=== PATIENT | female | born 1930 | race Caucasian/White ===

== ENCOUNTER 2017-05-27 16:41 | Inpatient (IN) | payer MEDICAID ==
[~2017-05-27] VITALS: Ht 154.9 cm; Wt 58.5 kg
[2017-05-27] MEDS ORDERED: IOHEXOL 350 MG/ML 10 ML VIAL (for RAD DIAG) IVCONTRAST ONE (16:42)
[2017-05-27 16:45] VITALS: BP 160/79; PULSE 104; RESP 16; TEMP 97.9; O2SAT 100
[2017-05-27 18:33] VITALS: O2SAT 97
[2017-05-27 19:05] VITALS: BP 151/71; PULSE 92; RESP 18; O2SAT 98
[2017-05-27 19:05] LABS: ALBUMIN 1.9 GM/DL (3.4-5.0); AST (GOT) 121 U/L (15-37); BICARBONATE 24.8 MEQ/L (21.0-32.0); BLOOD UREA NITROGEN 12 MG/DL (7-18); CALCIUM 8.7 MG/DL (8.5-10.1); CHLORIDE 102 MEQ/L (98-107); CREATININE 0.74 MG/DL (0.50-1.00); GLOMERULAR FILTRATION RATE 74 ML/MIN (>89); GLUCOSE,RANDOM 82 MG/DL (74-106); SODIUM (NA) 134 MEQ/L (136-145)
[2017-05-27 19:06] LABS: ALT (GPT) 69 U/L (10-53)
[2017-05-27 19:19] LABS: ALKALINE PHOSPHATASE 1296 U/L (45-117); TOTAL BILIRUBIN ADULT 2.9 MG/DL (0.2-1.0); TOTAL PROTEIN 5.9 GM/DL (6.4-8.2)
[2017-05-27 19:25] LABS: AUTOMATED NEUTROPHIL # 6.3 TH/MM3 (1.8-7.7); BASOPHIL # 0.1 TH/MM3 (0-0.2); BASOPHIL % 1.3 % (0.0-2.0); EOSINOPHIL # 0.2 TH/MM3 (0-0.4); EOSINOPHIL % 2.4 % (0.0-4.0); HEMATOCRIT 24.9 % (35.0-46.0); HEMOGLOBIN 8.8 GM/DL (11.6-15.3); LYMPHOCYTE # 1.4 TH/MM3 (1.0-4.8); MEAN CELL VOLUME 91.3 FL (80.0-100.0); MEAN CORPUSCULAR HEMOGLOBIN 32.3 PG (27.0-34.0); MEAN CORPUSCULAR HGB CONC 35.4 % (32.0-36.0); MEAN PLATELET VOLUME 8.7 FL (7.0-11.0); MONO % 7.3 % (0.0-8.0); MONOCYTE # 0.6 TH/MM3 (0-0.9); PLATELET COUNT 226 TH/MM3 (150-450); RED BLOOD COUNT 2.72 MIL/MM3 (4.00-5.30); WHITE BLOOD COUNT 8.6 TH/MM3 (4.0-11.0)
--- NOTE | 2017-05-27 19:26 | PD ---
HPI Chief Complaint: Abnormal Results Time Seen by Provider: 19:18 Travel History International Travel<30 days: No Contact w/Intl Traveler<30days: No Traveled to known affect area: No History of Present Illness HPI The patient is an 86 year old female who presents to the [facility] emergency department with a history of being told by her primary care physician that she needed to go to the emergency department related to liver failure. According to the daughter that that the bedside, the patient has not been well recently with increased fatigue, vaginal bleeding for the last few months, and diarrhea for the last month. The patient lives on her own, however recently due to the fatigue she has not been able to mow her lawn like she usually does. The patient was last seen by her primary care physician approximately a year ago. Her PCP is . Her family was concerned about her increased fatigue and went to her primary care physician without the patient herself and asked that labs be done. The laboratory studies revealed elevated liver enzymes thus the referral to the emergency department. Otherwise on review of systems, the patient denies having any recent fevers, cough, congestion, neck pain, chest pain, shortness of breath, abdominal pain, vomiting, urinary symptoms, one-sided weakness, slurred speech, facial droop, difficulty with word finding ability, or vision changes. The patient denies drinking any alcohol. She denies using any [id number] pain relievers. PFSH Past Medical History Narrative Medical The patient reports having history of acid reflux. The patient reports having a history of shingles 2 years ago with intermittent dizziness since then and fatigue since then according to the family. ?: Not Menopausal: Yes Past Surgical History Narrative Surgical The patient's past surgical history is significant for a hemorrhoidectomy. Social History Alcohol Use: No Tobacco Use: No Substance Use: No Allergies-Medications (Allergen,Severity, Reaction): Coded Allergies: No Known Allergies (Unverified , 05/27/17) Reported Meds & Prescriptions Reported Meds & Active Scripts Active No Active Prescriptions or Reported Medications Review of Systems Except as stated in HPI: all other systems reviewed are Neg General / Constitutional: No: Fever Eyes: No: Visual changes HENT: No: Headaches Cardiovascular: No: Chest Pain or Discomfort Respiratory: No: Shortness of Breath Gastrointestinal: Positive: Diarrhea, Changes in Bowel Habits, Indigestion, Loss of Appetite, No: Nausea, Vomiting, Abdominal Pain, Hematemesis, Hematochezia Genitourinary: Positive: Vaginal Bleeding, No: Dysuria Musculoskeletal: No: Pain Skin: No Rash Neurologic: No: Weakness Psychiatric: No: Depression Endocrine: No: Polydipsia Hematologic/Lymphatic: No: Easy Bruising Physical Exam Narrative General: The patient is a well-developed well-nourished female in no acute distress. She is slightly pale on examination. Head and Neck exam: Head is normocephalic atraumatic. Eyes: EOMI, pupils are equal round and reactive to light. Nose: Midline septum with pink mucous membranes Mouth: Dentition unremarkable. Moist mucus membranes. Posterior oropharynx is not erythematous. No tonsillar hypertrophy. Uvula midline. Airway patent. Neck: No palpable lymphadenopathy. No nuchal rigidity. No thyromegaly. Cardiovascular: Regular rate and rhythm without murmurs, gallops, or rubs. Lungs: Clear to auscultation bilaterally. No wheezes, rhonchi, or rales. Abdomen: Soft, without tenderness to palpation in all 4 quadrants of the abdomen. No guarding, rebound, or rigidity. Normal bowel sounds are audible. No tenderness on palpation of McBurney's point. Negative Light's sign. Extremities: No clubbing, cyanosis, or edema. 2+ pulses in all 4 extremities. No calf tenderness on palpation. Back: No costovertebral angle tenderness to palpation. Neurologic Exam: Cranial nerves 2-12 were intact on exam. Strength is 5/5 in all 4 extremities. No sensory deficits noted. Skin Exam: No rash noted. Intact skin that is warm and dry. RECTAL EXAM: No masses or tenderness, no stool is noted in the rectal vault. The patient is noted to have some blood in her depends that appears to be related to vaginal bleeding. This is consistent with her reported history of spotting. Mucus on rectal examination was Hemoccult positive. Data Data Last Documented VS Vital Signs Date Time Temp Pulse Resp B/P (MAP) Pulse Ox O2 Delivery O2 Flow Rate FiO2 05/27/17 19:59 95 18 160/95 (116) 100 Room Air 05/27/17 18:34 2.00 05/27/17 16:45 97.9 Orders Orders Complete Blood Count With Diff (05/27/17 18:24) Comprehensive Metabolic Panel (05/27/17 18:24) Iv Access Insert/Monitor (05/27/17 18:24) Ecg Monitoring (05/27/17 18:24) Oximetry (05/27/17 18:24) Lipase (05/27/17 18:24) Prothrombin Time / Inr (Pt) (05/27/17 19:18) Act Partial Throm Time (Ptt) (05/27/17 19:18) Ct Abd/Pel W Iv Contrast(Rout) (05/27/17 19:18) Iohexol 350 Inj (Omnipaque 350 Inj) (05/27/17 16:42) Us Abdomen Gallbladder (05/27/17 19:53) Consult Gastroenterology (05/27/17 ) Admit Order (Ed Use Only) (05/27/17 21:34) Diet Npo (05/28/17 Breakfast) Labs Laboratory Tests Test 05/27/17 18:28 05/27/17 19:05 05/27/17 19:25 Blood Urea Nitrogen 12 MG/DL Creatinine 0.74 MG/DL Random Glucose 82 MG/DL Total Protein 5.9 GM/DL Albumin 1.9 GM/DL Calcium Level 8.7 MG/DL Alkaline Phosphatase 1296 U/L Aspartate Amino Transf (AST/SGOT) 121 U/L Alanine Aminotransferase (ALT/SGPT) 69 U/L Total Bilirubin 2.9 MG/DL Sodium Level 134 MEQ/L Potassium Level 4.3 MEQ/L Chloride Level 102 MEQ/L Carbon Dioxide Level 24.8 MEQ/L Anion Gap 7 MEQ/L Estimat Glomerular Filtration Rate 74 ML/MIN Lipase 196 U/L White Blood Count 8.6 TH/MM3 Red Blood Count 2.72 MIL/MM3 Hemoglobin 8.8 GM/DL Hematocrit 24.9 % Mean Corpuscular Volume 91.3 FL Mean Corpuscular Hemoglobin 32.3 PG Mean Corpuscular Hemoglobin Concent 35.4 % Red Cell Distribution Width 15.0 % Platelet Count 226 TH/MM3 Mean Platelet Volume 8.7 FL Neutrophils (%) (Auto) 73.0 % Lymphocytes (%) (Auto) 16.0 % Monocytes (%) (Auto) 7.3 % Eosinophils (%) (Auto) 2.4 % Basophils (%) (Auto) 1.3 % Neutrophils # (Auto) 6.3 TH/MM3 Lymphocytes # (Auto) 1.4 TH/MM3 Monocytes # (Auto) 0.6 TH/MM3 Eosinophils # (Auto) 0.2 TH/MM3 Basophils # (Auto) 0.1 TH/MM3 CBC Comment DIFF FINAL Differential Comment Prothrombin Time 10.7 SEC Prothromb Time International Ratio 1.1 RATIO Activated Partial Thromboplast Time 25.6 SEC MDM Medical Decision Making Medical Screen Exam Complete: Yes Emergency Medical Condition: Yes Medical Record Reviewed: Yes Interpretation(s) Last Impressions Gall Bladder Ultrasound 05/27/171952 Signed Impressions: Service Date/Time: Saturday, May 27, 2017 20:28 - CONCLUSION: 1. Choledocholithiasis. At least 2 subcentimeter distal duct stones causing obstruction. 2. Cholelithiasis without evidence of cholecystitis. 3. Small ascites, nonspecific. Romeo Caro MD Abdomen/Pelvis CT 05/27/171917 Signed Impressions: Service Date/Time: Saturday, May 27, 2017 19:39 - CONCLUSION: 1. Biliary obstruction at the level of the distal common bile duct and probably on the basis of stones. 2. Superimposed hepatocellular dysfunction and/or portal hypertension possible. There is ascites and splenomegaly. Portal vein is patent. 3. Large heterogeneous masslike area of the lower uterine segment/cervix. Endometrial and cervical carcinoma are both in the differential. I don't see any evidence of metastatic disease. 4. Diverticulosis without definite diverticulitis. 5. Large hiatal hernia. 6. Subcutaneous nodule mons pubis area as above and please correlate clinically. 7. Trace atelectasis and tiny effusions of the visualized lung bases. Romoe Caro MD Differential Diagnosis Symptomatic anemia, versus liver failure with fatigue, versus liver metastasis Narrative Course During the course of the patients emergency department visit, the patients history, examination, and differential diagnosis were reviewed with the patient. The patient was placed on a threat monitoring analyst with oximetry and frequent blood pressure monitoring. The patient had IV access obtained and blood work sent for analysis. The patients laboratory studies were reviewed and remarkable for a white count of 8.6, hemoglobin 8.8, platelets 226 with 73 neutrophils. Rectal examination revealed no stool in the rectal vault, however mucus was Hemoccult positive this could be a false positive related to the patient's vaginal bleeding, as there was some blood in the pull-up. CMP is remarkable for sodium 134, GFR 74, total bilirubin 2.9, AST 121, ALT 69, alkaline phosphatase 1296, lipase 196, PT 10.7, PTT 20 5. Radiology studies were reviewed and remarkable for a CT scan of the abdomen and pelvis shows biliary obstruction at the level of the distal common bile duct and probable relation to stones, superimposed hepatocellular dysfunction and/or portal hypertension, ascites and splenomegaly, large heterogeneous masslike area of the lower uterine segment and cervix. Ultrasound reveals choledocholithiasis with at least 2 subcentimeter distal duct stones causing obstruction. A call was placed out to the GI doctor on-call, . He requested that the patient be made nothing by mouth. He was see the patient in consultation tomorrow and plans to do an ERCP tomorrow. The patients results were discussed with the patient, including the plan of care. I explained that further testing and/ or monitoring is indicated based on the patients history, examination, and/ or laboratory findings. Therefore, I recommended admission for additional evaluation. The patient expressed understanding and was agreeable with this plan. The patient was admitted to the hospital in guarded condition and sent to a bed under the care of the [facility] service. HemaPrompt Point of Care Internal Pos. & Neg. Controls: Passed Fecal Specimen Occult Blood: Positive Physician Communication Physician Communication The patient's case including history, pertinent physical examination findings, and laboratory studies were discussed with Dr. Brooks. It was agreed that the patient would be admitted to the [facility] service. I also spoke to the spanish speaking nanny regarding the patient's choledocholithiasis. The patient will be seen in consultation in the morning. Diagnosis Primary Impression: Choledocholithiasis Additional Impressions: Uterine mass Vaginal bleeding Elevated LFTs Admitting Information Admitting Physician Requests: Admit Scripts No Active Prescriptions or Reported Meds Kerry Wilkins MD May 27, 2017 19:26
[2017-05-27 19:53] LABS: INTERNATIONAL NORMALIZED RATIO 1.1 RATIO; PROTHROMBIN TIME - PATIENT 10.7 SEC (9.8-11.6)
[2017-05-27 19:59] VITALS: BP 160/95; PULSE 95; RESP 18; O2SAT 100
--- NOTE | 2017-05-27 20:02 | RADRPT ---
EXAM DATE/TIME: 05/27/2017 19:39 [facility] COMPARISON: No previous studies available for comparison. INDICATIONS : Vaginal bleeding with abnormal liver enzymes. IV CONTRAST: 90 cc Omnipaque 350 (iohexol) IV ORAL CONTRAST: No oral contrast ingested. RADIATION DOSE: 5.18 CTDIvol (mGy) MEDICAL HISTORY : None SURGICAL HISTORY : None. ENCOUNTER: Initial ACUITY: 2 months PAIN SCALE: 0/10 LOCATION: abdomen TECHNIQUE: Volumetric scanning of the abdomen and pelvis was performed. Using automated exposure control and ad justment of the mA and/or kV according to patient size, radiation dose was kept as low as reasonably achievable to obtain optimal diagnostic quality images. DICOM format image data is available electro nically for review and comparison. FINDINGS: There is intrahepatic and extrahepatic biliary distention. Common bile duct measures 15 mm. There are several foci of increased attenuation within the distal duct, presumably stones. The gallbladder is mildly distended. No perceptible wall thickening. There is mild splenomegaly. There is also small asc ites; nothing organized or drainable. Portal vein is patent. Pancreatic duct is distended but the par enchyma is within normal limits. Heterogeneous masslike area measuring approximately 4.7 x 5.1 cm seen of the lower uterine segment an d/or cervix. Adnexal regions are within normal limits. There is diverticulosis of the left side of the colon without definite diverticulitis. Subcutaneous nodule seen just beneath the skin in the mons pubis area, most likely a sebaceous cyst b ut please correlate clinically. There is a large hiatal hernia. Mild atelectasis of the lung bases and tiny effusions. No acute bony abnormality demonstrated. CONCLUSION: 1. Biliary obstruction at the level of the distal common bile duct and probably on the basis of stone s. 2. Superimposed hepatocellular dysfunction and/or portal hypertension possible. There is ascites and splenomegaly. Portal vein is patent. 3. Large heterogeneous masslike area of the lower uterine segment/cervix. Endometrial and cervical ca rcinoma are both in the differential. I don't see any evidence of metastatic disease. 4. Diverticulosis without definite diverticulitis. 5. Large hiatal hernia. 6. Subcutaneous nodule mons pubis area as above and please correlate clinically. 7. Trace atelectasis and tiny effusions of the visualized lung bases. Romeo Caro MD on May 27, 2017 at 19:53 Board Certified Radiologist. This report was verified electronically.
--- NOTE | 2017-05-27 21:09 | RADRPT ---
EXAM DATE/TIME: 05/27/2017 20:28 [facility] COMPARISON: CT ABDOMEN & PELVIS W CONTRAST, May 27, 2017, 19:39. INDICATIONS : Right upper quadrant pain. MEDICAL HISTORY : None. SURGICAL HISTORY : None. ENCOUNTER: Initial ACUITY: 1 day PAIN SCORE: 2/10 LOCATION: Right upper quadrant MEASUREMENTS: LIVER: 12.8 cm length COMMON DUCT: 17 mm RIGHT KIDNEY: 9.0 x 3.0 x 4.0 cm FINDINGS: LIVER: Normal echotexture without focal lesion or ductal dilatation. There is normal flow velocity and dire ction in the main portal vein. COMMON DUCT: No intraluminal mass or stone visualized. Stones are seen in the distal duct measuring 5 x 5 x 3 mm a nd 6 x 4 x 3 mm. GALLBLADDER: Several subcentimeter stones and small moderate sludge seen in the gallbladder lumen. No wall thicken ing or pericholecystic fluid. Negative sonographic Light's sign. PANCREAS: The visualized portions are within normal limits. RIGHT KIDNEY: No evidence of hydronephrosis, stone, or mass. Small ascites noted. CONCLUSION: 1. Choledocholithiasis. At least 2 subcentimeter distal duct stones causing obstruction. 2. Cholelithiasis without evidence of cholecystitis. 3. Small ascites, nonspecific. Romeo Caro MD on May 27, 2017 at 21:04 Board Certified Radiologist. This report was verified electronically.
--- NOTE | 2017-05-27 21:44 | HHI.HP ---
HPI [facility] Primary [facility] Physician Compa Mandujano, DO Admission Diagnosis Choledocholitiasis, uterine mass with vaginal bleeding Diagnoses: (1) Choledocholithiasis Diagnosis: Principal (2) Elevated LFTs Diagnosis: Principal (3) Vaginal bleeding Diagnosis: Principal (4) Uterine mass Diagnosis: Principal Travel History International Travel<30 Days: No Contact w/Intl Traveler <30 Da: No Traveled to Known Affected Are: No History of Present Illness This is an 86-year-old female with a PMH of GERD who was referred to the ER by PCP secondary to elevated liver functions. Per family, patient has had generalized weakness, intermittent abdominal cramping, vaginal bleeding and occasional diarrhea for the last 3-4wks. Had outpatient lab work done and sent to ER for elevated LFTs, previously normal per report. Notes generalized abdominal pain, cramping in nature, moderate intensity, non-radiating. No nausea or vomiting, no fever or chills. Does note vaginal bleeding for several weeks, no prior intervention/work up. On arrival, BP 160/79, HR 104, O2 sat 100 % on RA, Afebrile. Hemoglobin 8.8. Chemistry essentially unremarkable. AST 121, ALT 69, ALP 1296. INR 1.1. CT Abdomen/Pelvis with biliary obstruction at level of distal common bile duct probably due to stone ROM of portal hypertension and ascites, large masslike area in the uterine/cervical region, hiatal hernia. Gallbladder US with choledocholithiasis, stones causing obstruction. Dr. Chou consulted by ER physician, plan is for ERCP in am. Review of Systems Except as stated in HPI: all other systems reviewed are Neg ROS: 14 point review of systems otherwise negative. Past Family Social History Past Medical History PMH: GERD Past Surgical History PAST SURGICAL HISTORY: Hemorrhoidectomy Allergies: Coded Allergies: No Known Allergies (Unverified , 05/27/17) Family History PAST FAMILY HISTORY: Reviewed. No h/o DM or CAD Social History PAST SOCIAL HISTORY: Negative for alcohol, tobacco or drugs. Physical Exam Vital Signs Vital Signs Date Time Temp Pulse Resp B/P (MAP) Pulse Ox O2 Delivery O2 Flow Rate FiO2 05/27/17 19:59 95 18 160/95 (116) 100 Room Air 05/27/17 19:05 92 18 151/71 (97) 98 Room Air 05/27/17 18:34 18 97 Nasal Cannula 2.00 05/27/17 18:33 97 Nasal Cannula 2.00 05/27/17 16:45 97.9 104 16 160/79 (106) 100 Physical Exam PE: GENERAL: Pleasant elderly white female in no acute distress. Family at bedside. HEENT: PERRLA, EOMI. No scleral icterus or conjunctival pallor. No lid lag or facial droop. CARDIOVASCULAR: Regular rate and rhythm. No obvious murmurs to auscultation. No chest tenderness to palpation. RESPIRATORY: No obvious rhonchi or wheezing. Clear to auscultation. Breath sounds equal bilaterally. GASTROINTESTINAL: Abdomen soft, non-tender, nondistended. BS normal. MUSCULOSKELETAL: Extremities without clubbing, cyanosis, or edema. No obvious deformities. NEUROLOGICAL: Awake, alert and oriented x4. No focal neurologic deficits. Moving both upper and lower extremities spontaneously. Laboratory Laboratory Tests Test 05/27/17 18:28 05/27/17 19:05 05/27/17 19:25 Blood Urea Nitrogen 12 Creatinine 0.74 Random Glucose 82 Total Protein 5.9 Albumin 1.9 Calcium Level 8.7 Alkaline Phosphatase 1296 Aspartate Amino Transf (AST/SGOT) 121 Alanine Aminotransferase (ALT/SGPT) 69 Total Bilirubin 2.9 Sodium Level 134 Potassium Level 4.3 Chloride Level 102 Carbon Dioxide Level 24.8 Anion Gap 7 Estimat Glomerular Filtration Rate 74 Lipase 196 White Blood Count 8.6 Red Blood Count 2.72 Hemoglobin 8.8 Hematocrit 24.9 Mean Corpuscular Volume 91.3 Mean Corpuscular Hemoglobin 32.3 Mean Corpuscular Hemoglobin Concent 35.4 Red Cell Distribution Width 15.0 Platelet Count 226 Mean Platelet Volume 8.7 Neutrophils (%) (Auto) 73.0 Lymphocytes (%) (Auto) 16.0 Monocytes (%) (Auto) 7.3 Eosinophils (%) (Auto) 2.4 Basophils (%) (Auto) 1.3 Neutrophils # (Auto) 6.3 Lymphocytes # (Auto) 1.4 Monocytes # (Auto) 0.6 Eosinophils # (Auto) 0.2 Basophils # (Auto) 0.1 CBC Comment DIFF FINAL Differential Comment Prothrombin Time 10.7 Prothromb Time International Ratio 1.1 Activated Partial Thromboplast Time 25.6 Result Diagram: 05/27/17190405/27/171827 Caprini VTE Risk Assessment Caprin VTE Risk Assessment: No/Low Risk (score <= 1) Caprini Risk Assessment Model Point Value = 1 Point Value = 2 Point Value = 3 Point Value = 5 Age 41-60 Minor surgery BMI > 25 kg/m2 Swollen legs Varicose veins or History of unexplained or recurrent spontaneous Oral contraceptives or hormone replacement Sepsis (< 1 month) Serious lung disease, including pneumonia (< 1 month) Abnormal pulmonary function Acute myocardial infarction Congestive heart failure (< 1 month) History of inflammatory bowel disease Medical patient at bed rest Age 61-74 Arthroscopic surgery Major open surgery (> 45 min) Laparoscopic surgery (> 45 min) Malignancy Confined to bed (> 72 hours) Immobilizing plaster cast Central venous access Age >= 75 History of VTE Family history of VTE Factor V Leiden Prothrombin [id number] Lupus anticoagulant Anticardiolipin antibodies Elevated serum homocysteine Heparin-induced thrombocytopenia Other congenital or acquired thrombophilia Stroke (< 1 month) Elective arthroplasty Hip, pelvis, or leg fracture Acute spinal cord injury (< 1 month) Prophylaxis Regimen Total Risk Factor Score Risk Level Prophylaxis Regimen 0-1 Low Early ambulation 2 Moderate Order ONE of the following: *Sequential Compression Device (SCD) *Heparin 5000 units SQ BID 3-4 Higher Order ONE of the following medications: *Heparin 5000 units SQ TID *Enoxaparin/Lovenox 40 mg SQ daily (WT < 150 kg, CrCl > 30 mL/min) *Enoxaparin/Lovenox 30 mg SQ daily (WT < 150 kg, CrCl > 10-29 mL/min) *Enoxaparin/Lovenox 30 mg SQ BID (WT < 150 kg, CrCl > 30 mL/min) AND/OR *Sequential Compression Device (SCD) 5 or more Highest Order ONE of the following medications: *Heparin 5000 units SQ TID (Preferred with Epidurals) *Enoxaparin/Lovenox 40 mg SQ daily (WT < 150 kg, CrCl > 30 mL/min) *Enoxaparin/Lovenox 30 mg SQ daily (WT < 150 kg, CrCl > 10-29 mL/min) *Enoxaparin/Lovenox 30 mg SQ BID (WT < 150 kg, CrCl > 30 mL/min) AND *Sequential Compression Device (SCD) Assessment and Plan Problem List: (1) Choledocholithiasis ICD Code: K80.50 - Calculus of bile duct without cholangitis or cholecystitis without obstruction (2) Elevated LFTs ICD Code: R79.89 - Other specified abnormal findings of blood chemistry (3) Vaginal bleeding ICD Code: N93.9 - Abnormal uterine and vaginal bleeding, unspecified (4) Uterine mass ICD Code: N85.9 - Noninflammatory disorder of uterus, unspecified Assessment and Plan A/P: 1. Choledocholithiasis: progressive abdominal pain, CT Abd/Pelvis w/ biliary obstruction at the level of distal common bile duct likely due to stones, Gallbladder US with choledocholithiasis and obstruction, images reviewed by me. Dr. Chou consulted, plan is for ERCP in am. NPO, IVF, analgesics/ antiemetics as needed. 2. Elevated LFTs: secondary to above, CT Abd/Pelvis w evidence of portal hypertension and ascites, images reviewed by me. Repeat labs following ERCP for trend. 3. Uterine Mass: CT Abd/Pelvis w/ large masslike area of uterine/cervix, concern for underlying malignancy. Will Consult [facility] for further evaluation , likely intervention. 4. Vaginal Bleeding: secondary to above, r/o malignancy, [facility] to eval for further recommendations. +associated Anemia, Hgb 8.8, baseline unknown. Monitor closely for further decline, transfuse as needed for Hgb <7 5. DVT Prophylaxis: SCD/teds. 6. Social work for DC planning as needed. 7. Case discussed at length with ER physician, labs/imaging/records reviewed by me. Physician Certification 2 Midnight Certification Type: Admission for Inpatient Services Order for Inpatient Services The services are ordered in accordance with Medicare regulations or non- Medicare payer requirements, as applicable. In the case of services not specified as inpatient-only, they are appropriately provided as inpatient services in accordance with the 2-midnight benchmark. Estimated LOS (days): 2 days is the estimated time the patient will need to remain in the hospital, assuming treatment plan goals are met and no additional complications. Post-Hospital Plan: Not yet determined Judit Brooks MD May 27, 2017 21:44
[2017-05-27] MEDS ORDERED: ONDANSETRON HCL 4 MG/2 ML VIAL IVP PRN (21:45)
[2017-05-27] MEDS ORDERED: SENNOSIDES 8.6 MG TAB PO PRN (21:45)
[2017-05-27] MEDS ORDERED: ACETAMINOPHEN 325 MG TAB PO PRN (21:45)
[2017-05-27] MEDS ORDERED: SODIUM CHLORIDE 0.9% FLUSH 10 ML FLUSH IV FLUSH PRN (21:45)
[2017-05-27] MEDS ORDERED: MORPHINE SULFATE 2 MG/ML INJ IV PUSH PRN (21:45)
[2017-05-27] MEDS ORDERED: MAGNESIUM HYDROXIDE SUSP 30 ML CUP PO PRN (21:45)
[2017-05-27] MEDS ORDERED: LACTULOSE SYRUP 20 GM/30 ML CUP PO PRN (21:45)
[2017-05-27] MEDS ORDERED: BISACODYL 10 MG SUPP RECTAL PRN (21:45)
[2017-05-27] MEDS: SODIUM CHLOR 0.9% 1000 ML INJ 1,000 ML IV SCH (22:00)
[2017-05-27 22:30] VITALS: BP 171/80; PULSE 96; RESP 18; TEMP 96.6; O2SAT 98
[2017-05-28] MEDS ORDERED: cloNIDine HCL 0.1 MG TAB PO ONE (01:30)
[2017-05-28 03:45] VITALS: BP 100/58; PULSE 82; RESP 17; TEMP 97.5; O2SAT 96
[2017-05-28 06:26] LABS: AUTOMATED NEUTROPHIL # 4.3 TH/MM3 (1.8-7.7); BASOPHIL # 0.1 TH/MM3 (0-0.2); BASOPHIL % 1.1 % (0.0-2.0); EOSINOPHIL # 0.2 TH/MM3 (0-0.4); EOSINOPHIL % 2.9 % (0.0-4.0); HEMATOCRIT 24.1 % (35.0-46.0); HEMOGLOBIN 8.2 GM/DL (11.6-15.3); LYMPH % 18.6 % (9.0-44.0); LYMPHOCYTE # 1.1 TH/MM3 (1.0-4.8); MEAN CELL VOLUME 91.9 FL (80.0-100.0); MEAN CORPUSCULAR HEMOGLOBIN 31.3 PG (27.0-34.0); MEAN CORPUSCULAR HGB CONC 34.1 % (32.0-36.0); MEAN PLATELET VOLUME 8.4 FL (7.0-11.0); MONO % 7.4 % (0.0-8.0); MONOCYTE # 0.5 TH/MM3 (0-0.9); PLATELET COUNT 204 TH/MM3 (150-450); RED BLOOD COUNT 2.63 MIL/MM3 (4.00-5.30); RED CELL DISTRIBUTION WIDTH 14.8 % (11.6-17.2); WHITE BLOOD COUNT 6.2 TH/MM3 (4.0-11.0)
[2017-05-28 07:03] LABS: ALBUMIN 1.5 GM/DL (3.4-5.0); ALT (GPT) 58 U/L (10-53); AST (GOT) 101 U/L (15-37); BLOOD UREA NITROGEN 10 MG/DL (7-18); CALCIUM 8.3 MG/DL (8.5-10.1); CHLORIDE 106 MEQ/L (98-107); CREATININE 0.64 MG/DL (0.50-1.00); GLOMERULAR FILTRATION RATE 88 ML/MIN (>89); GLUCOSE,RANDOM 77 MG/DL (74-106); SODIUM (NA) 139 MEQ/L (136-145)
[2017-05-28 07:17] LABS: ALKALINE PHOSPHATASE 1051 U/L (45-117); TOTAL BILIRUBIN ADULT 3.1 MG/DL (0.2-1.0)
[2017-05-28 07:39] VITALS: BP 117/59; PULSE 84; RESP 18; TEMP 97.6; O2SAT 98
[2017-05-28] MEDS: SODIUM CHLORIDE 0.9% FLUSH 10 ML FLUSH IV FLUSH SCH ×2 (08:45→21:52)
[2017-05-28] MEDS: SODIUM CHLOR 0.9% 1000 ML INJ 1,000 ML IV SCH ×2 (08:45→17:42)
[2017-05-28] MEDS: DOCUSATE SODIUM 50 MG/SENNA 8.6 MG TAB PO SCH ×2 (08:45→21:00)
[2017-05-28] MEDS ORDERED: PNEUMOCOCCAL POLYVALENT INJ 25 MCG/0.5 ML SYR IM ONE (10:00)
[2017-05-28] MEDS ORDERED: INFLUENZA VIRUS VACCINE (QUADRIVALENT) 0.5 ML SYR IM ONE (10:00)
--- NOTE | 2017-05-28 11:19 | PD.CONS ---
HPI History of Present Illness This is a 86 year old female with no significant prior medical hx who was referred to ER by her PCP after labwork revealed elevated LFTs. She admits loose stool for the last 3 weeks. She has also been having vaginal bleeding for the last 3 weeks. She denies abd pain, jaundice, fevers, n/v. No prior hx of problems with liver, gallbladder or pancreas. Never had EGD or colonoscopy. Denies ETOH consumption. CT showed bile duct obstruction distal CBD, ascites , splenomegaly, hepatocellular dysfunction vs portal HTN, uterin mass. Gallbladder US showed choledocholithiasis. (Kristy Crespo) PFSH Past Medical History shingles Past Surgical History Hemorrhoidectomy (Kristy Crespo) Coded Allergies: No Known Allergies (Unverified , 05/27/17) Family History BrCa - mother age 30 Social History denies significant ETOH former smoker, quit 40years ago no illicit drug use (Kristy Crespo) Review of Systems Constitutional: DENIES: Fever Eyes: DENIES: Blurred vision Ears, nose, mouth, throat: DENIES: Hearing loss Respiratory: DENIES: Cough Cardiovascular: DENIES: Chest pain Gastrointestinal: COMPLAINS OF: Diarrhea, DENIES: Abdominal pain, Black stools , Bloody stools, Nausea, Vomiting, Hematemesis Genitourinary: DENIES: Hematuria Musculoskeletal: DENIES: Joint Swelling Integumentary: DENIES: Jaundice Hematologic/lymphatic: DENIES: Bruising Neurologic: DENIES: Abnormal gait Psychiatric: DENIES: Confusion (Kristy Crespo) GI Exam Vitals I&O Vital Signs Date Time Temp Pulse Resp B/P (MAP) Pulse Ox O2 Delivery O2 Flow Rate FiO2 05/28/17 07:39 97.6 84 18 117/59 (78) 98 05/28/17 03:45 97.5 82 17 100/58 (72) 96 05/27/17 22:30 96.6 96 18 171/80 (110) 98 05/27/17 19:59 95 18 160/95 (116) 100 Room Air 05/27/17 19:05 92 18 151/71 (97) 98 Room Air 05/27/17 18:34 18 97 Nasal Cannula 2.00 05/27/17 18:33 97 Nasal Cannula 2.00 05/27/17 16:45 97.9 104 16 160/79 (106) 100 I/O 05/27/17 05/27/17 05/27/17 05/28/17 05/28/17 05/28/17 07:00 15:00 23:00 07:00 15:00 23:00 Intake Total 0 ml Balance 0 ml Intake Oral 0 ml # Voids 1 # Bowel Movements 0 Imaging Last Impressions Gall Bladder Ultrasound 05/27/171952 Signed Impressions: Service Date/Time: Saturday, May 27, 2017 20:28 - CONCLUSION: 1. Choledocholithiasis. At least 2 subcentimeter distal duct stones causing obstruction. 2. Cholelithiasis without evidence of cholecystitis. 3. Small ascites, nonspecific. Romeo Caro MD Abdomen/Pelvis CT 05/27/171917 Signed Impressions: Service Date/Time: Saturday, May 27, 2017 19:39 - CONCLUSION: 1. Biliary obstruction at the level of the distal common bile duct and probably on the basis of stones. 2. Superimposed hepatocellular dysfunction and/or portal hypertension possible. There is ascites and splenomegaly. Portal vein is patent. 3. Large heterogeneous masslike area of the lower uterine segment/cervix. Endometrial and cervical carcinoma are both in the differential. I don't see any evidence of metastatic disease. 4. Diverticulosis without definite diverticulitis. 5. Large hiatal hernia. 6. Subcutaneous nodule mons pubis area as above and please correlate clinically. 7. Trace atelectasis and tiny effusions of the visualized lung bases. Romeo Caro MD Laboratory Test 05/27/17 18:28 05/27/17 19:05 05/27/17 19:25 05/28/17 05:27 Blood Urea Nitrogen 12 MG/DL 10 MG/DL Creatinine 0.74 MG/DL 0.64 MG/DL Random Glucose 82 MG/DL 77 MG/DL Total Protein 5.9 GM/DL 5.0 GM/DL Albumin 1.9 GM/DL 1.5 GM/DL Calcium Level 8.7 MG/DL 8.3 MG/DL Alkaline Phosphatase 1296 U/L 1051 U/L Aspartate Amino Transf (AST/SGOT) 121 U/L 101 U/L Alanine Aminotransferase (ALT/SGPT) 69 U/L 58 U/L Total Bilirubin 2.9 MG/DL 3.1 MG/DL Sodium Level 134 MEQ/L 139 MEQ/L Potassium Level 4.3 MEQ/L 3.8 MEQ/L Chloride Level 102 MEQ/L 106 MEQ/L Carbon Dioxide Level 24.8 MEQ/L 25.0 MEQ/L Anion Gap 7 MEQ/L 8 MEQ/L Estimat Glomerular Filtration Rate 74 ML/MIN 88 ML/MIN Lipase 196 U/L White Blood Count 8.6 TH/MM3 6.2 TH/MM3 Red Blood Count 2.72 MIL/MM3 2.63 MIL/MM3 Hemoglobin 8.8 GM/DL 8.2 GM/DL Hematocrit 24.9 % 24.1 % Mean Corpuscular Volume 91.3 FL 91.9 FL Mean Corpuscular Hemoglobin 32.3 PG 31.3 PG Mean Corpuscular Hemoglobin Concent 35.4 % 34.1 % Red Cell Distribution Width 15.0 % 14.8 % Platelet Count 226 TH/MM3 204 TH/MM3 Mean Platelet Volume 8.7 FL 8.4 FL Neutrophils (%) (Auto) 73.0 % 70.0 % Lymphocytes (%) (Auto) 16.0 % 18.6 % Monocytes (%) (Auto) 7.3 % 7.4 % Eosinophils (%) (Auto) 2.4 % 2.9 % Basophils (%) (Auto) 1.3 % 1.1 % Neutrophils # (Auto) 6.3 TH/MM3 4.3 TH/MM3 Lymphocytes # (Auto) 1.4 TH/MM3 1.1 TH/MM3 Monocytes # (Auto) 0.6 TH/MM3 0.5 TH/MM3 Eosinophils # (Auto) 0.2 TH/MM3 0.2 TH/MM3 Basophils # (Auto) 0.1 TH/MM3 0.1 TH/MM3 CBC Comment DIFF FINAL DIFF FINAL Differential Comment Prothrombin Time 10.7 SEC Prothromb Time International Ratio 1.1 RATIO Activated Partial Thromboplast Time 25.6 SEC Physical Examination HEENT: PERRL; normocephalic; atraumatic; subtle icterus CHEST: CTA CARDIAC: RRR ABDOMEN: Soft, mildly distended, dull, nontender; bowel sounds soft EXTREMITIES: No clubbing, cyanosis, or edema. SKIN: Normal; no rash; no jaundice. SLAG WHEELER: No focal deficits; alert and oriented times three. (Kristy Crespo) Assessment and Plan Plan ASSESSMENT - elevated LFTs, abnormal imaging - choledocholithiasis. Liver chemistries elevated in obstructive pattern. US GB showed stones in bile duct. CT as above, showed CBD obstruction, poss superimposed hepatocellular dysfunction and/or portal HTN, ascites, splenomegaly, dilated pancreatic duct. will get liver w/u she denies abd pain or prior hx liver problems, gallbladder problems, drinking - cholelithiasis - imaging as above - uterine mass - seen on CT. acls specialist consult pending PLAN - ERCP - obtain consent - keep NPO - liver w/u - consider GS consult - further recs to follow pt seen by myself and Dr Chou and this note is written on his behalf (Kristy Crespo) Physician Comments Patient was seen and examined, agree with above Notes, common bile duct stones on CT scan, elevated liver function test, plan for ERCP today, I discussed with the patient the procedure and complication she is agreeable to have it done Uterus/cervical mass further plan per primary team (Susan Chou MD) Kristy Crespo May 28, 2017 11:19 Susan Chou MD May 28, 2017 13:31
[2017-05-28 12:00] VITALS: BP 130/61; PULSE 93; RESP 18; TEMP 96.9; O2SAT 94
[2017-05-28] MEDS ORDERED: LIDOCAINE HCL 1% PF 5 ML SYRINGE OTHER ONE (12:00)
[2017-05-28] MEDS ORDERED: PROPOFOL 200 MG/20 ML AMP IV ONE (12:00)
--- NOTE | 2017-05-28 13:36 | PD.PROCEDR ---
GI Procedure PROCEDURE PERFORMED ERCP with sphincterotomy and stone extraction by balloon INDICATION FOR PROCEDURE Common bile duct stone on CT scan with elevated liver function test PROCEDURE: The procedure, risks and benefits were discussed with Ms. Ramon and informed consent was obtained. Anesthesia sedated her with Diprivan. She was placed in the left lateral decubitus position. ERCP: Patient was placed in a prone position. The Pentax videoscope was introduced through the oropharynx and advanced to the second portion of the duodenum where the ampula was identified. Cannulation was performed without any difficulty, cholangiogram, there were multiple filling defect in the common bile duct, sphincterotomy was performed, the duct was very dilated and a balloon sweep of the duct revealed for stones with sludge, the duct was irrigated with normal saline and end of case included cholangiogram was negative for any filling defect, the scope withdrawal back without any immediate complication FINDINGS: EGD limited exam normal Prominent ampulla Dilated common bile duct with multiple stones status post sphincterotomy was stone removal by balloon End of case included cholangiogram was negative for filling defects ESTIMATED BLOOD LOSS: None SPECIMENS REMOVED: None COMPLICATIONS: None PLAN: Nothing by mouth for 6 hours then clear liquid Watch for pancreatitis Liver function test in the morning Susan Chou MD May 28, 2017 13:36
--- NOTE | 2017-05-28 14:07 | RADRPT ---
EXAM DATE/TIME: 05/28/2017 13:24 [facility] COMPARISON: US ABDOMEN - GALLBLADDER, May 27, 2017, 20:28. CT ABDOMEN & PELVIS W CONTRAST, May 27, 2017, 19:39. INDICATIONS : Stones. Stone removal with sphincterotomy. FLUORO TIME: 3.24 minutes IMAGE COUNT: 3 CONTRAST: Instilled by Ordering Physician MEDICAL HISTORY : None. SURGICAL HISTORY : None. ENCOUNTER: Initial ACUITY: 1 day PAIN SCORE: Non-responsive. LOCATION: Right upper quadrant FINDINGS: An ERCP was performed by the ordering physician. The images demonstrate placement of an endoscope and cannulization of the distal common bile duct wi th opacification. There is evidence of distal obstruction with dilatation of the duct measuring up to approximately 1 cm. CONCLUSION: ERCP as above. Yair Aburto MD on May 28, 2017 at 14:01 Board Certified Radiologist. This report was verified electronically.
[2017-05-28] MEDS ORDERED: IOHEXOL 300 INJ 50 ML IV ONE (14:36)
--- NOTE | 2017-05-28 14:41 | HHI.PR ---
Subjective Remarks patient back fro ERC P- tolerated procedure well seen with family also having vaginal bleeding/spotting- for past 3 months- never mentioned to PCP with occasional lower abdominal discomfort- getting weaker Objective Vitals Vital Signs Date Time Temp Pulse Resp B/P (MAP) Pulse Ox O2 Delivery O2 Flow Rate FiO2 05/28/17 13:48 89 18 112/57 (75) 99 Room Air 05/28/17 12:00 96.9 93 18 130/61 (84) 94 05/28/17 07:39 97.6 84 18 117/59 (78) 98 05/28/17 03:45 97.5 82 17 100/58 (72) 96 05/27/17 22:30 96.6 96 18 171/80 (110) 98 05/27/17 19:59 95 18 160/95 (116) 100 Room Air 05/27/17 19:05 92 18 151/71 (97) 98 Room Air 05/27/17 18:34 18 97 Nasal Cannula 2.00 05/27/17 18:33 97 Nasal Cannula 2.00 05/27/17 16:45 97.9 104 16 160/79 (106) 100 I/O 05/27/17 05/27/17 05/27/17 05/28/17 05/28/17 05/28/17 07:00 15:00 23:00 07:00 15:00 23:00 Intake Total 0 ml 300 ml Balance 0 ml 300 ml Intake Oral 0 ml Other 300 ml # Voids 1 # Bowel Movements 0 Result Diagram: 05/28/17 0527 05/28/17 0527 Imaging Last Impressions GI Procedure 05/28/17 0000 Signed Impressions: Service Date/Time: Sunday, May 28, 2017 13:24 - CONCLUSION: ERCP as above. Yair Aburto MD Gall Bladder Ultrasound 05/27/171952 Signed Impressions: Service Date/Time: Saturday, May 27, 2017 20:28 - CONCLUSION: 1. Choledocholithiasis. At least 2 subcentimeter distal duct stones causing obstruction. 2. Cholelithiasis without evidence of cholecystitis. 3. Small ascites, nonspecific. Romeo Caro MD Abdomen/Pelvis CT 05/27/171917 Signed Impressions: Service Date/Time: Saturday, May 27, 2017 19:39 - CONCLUSION: 1. Biliary obstruction at the level of the distal common bile duct and probably on the basis of stones. 2. Superimposed hepatocellular dysfunction and/or portal hypertension possible. There is ascites and splenomegaly. Portal vein is patent. 3. Large heterogeneous masslike area of the lower uterine segment/cervix. Endometrial and cervical carcinoma are both in the differential. I don't see any evidence of metastatic disease. 4. Diverticulosis without definite diverticulitis. 5. Large hiatal hernia. 6. Subcutaneous nodule mons pubis area as above and please correlate clinically. 7. Trace atelectasis and tiny effusions of the visualized lung bases. Romeo Caro MD Objective Remarks awake and alert, oriented cx 3, pale anciteric lungs-clear regular rhythm abdomen soft, nontender extremities no edema neuro exam- non focal Procedures 05/28 ERCP with sphincterotomy and stone extraction by balloon A/P Problem List: (1) Choledocholithiasis ICD Code: K80.50 - Calculus of bile duct without cholangitis or cholecystitis without obstruction (2) Elevated LFTs ICD Code: R79.89 - Other specified abnormal findings of blood chemistry (3) Vaginal bleeding ICD Code: N93.9 - Abnormal uterine and vaginal bleeding, unspecified (4) Uterine mass ICD Code: N85.9 - Noninflammatory disorder of uterus, unspecified Assessment and Plan 86 years old female admitted for elevated LFTs and abdominal pain choledocholithiasis S/P ERCP with sphincterotomy 05/28 GI ff ff LFts start diet, watch for pancreatitis signs Uterine Mass on CT Abd/Pelvis w/ large masslike area of uterine/cervix, concern for underlying malignancy. Postmenopausal Vaginal Bleeding for months r/o malignancy, GYne/Onco was consulted by ER - I spoke with Dr. Owens- get a gyne evaluation first Anemia- from ongoing Vaginal bleeding- patient is symptomatic and very weak will give 1 unit RBC now get iron studies d/w family and patient TEDs/SCDs for DVT prophylaxis PPI for GI prophylaxis Jadiel Aguilar MD May 28, 2017 14:41
[2017-05-28] MEDS: PANTOPRAZOLE SOD 40 MG DELAYED RELEASE TAB PO SCH (15:27)
[2017-05-28 15:49] LABS: % SATURATION IRON PROFILE 28.9 % (20-50); IRON (FE) 53 MCG/DL (50-170); TOTAL IRON BINDING CAPACITY 183 MCG/DL (250-450)
[2017-05-28 15:52] LABS: FERRITIN 178 NG/ML (8-252)
[2017-05-28 16:00] VITALS: BP 132/62; PULSE 94; RESP 18; TEMP 97.1; O2SAT 97
--- NOTE | 2017-05-28 16:13 | PD.CONS ---
HPI Chief Complaint vaginal bleeding Date Seen: May 28, 2017 Time Seen: 15:30 Travel History International Travel<30 Days: No Contact w/Intl Traveler<30Days: No Known Affected Area: No History of Present Illness HPI Mrs. Ramon is an 86-year-old white female with a past medical history of hypertension presenting with vaginal bleeding. She states that this started a few months ago. She says she soaks through 4-5 pads a day. She feels like something is sloughing off in her vagina when she bleeds and also when she looks at the contents in her pad. No abdominal or pelvic pain. She states that she has no gynecological hx. Her last Pap smear was 8 years ago. She used to have them done yearly, none were abnormal. She went into menopause in her early 50s. Para: 2 : 2 History Past Medical History Narrative Medical HTN Obstetric History Obstetric History , last pap smear was 8 years, all yearly exams had been normal Menopause started in early 50s Past Surgical History Narrative Surgical Hemorrhoidectomy Family History Narrative Family History Mother- breast cancer, at 33 Brother- Pancreatic cancer, Lung cancer that metastasized to braine Social History Narrative Social History Lives alone in [place] Alcohol Use: No Tobacco Use: No (quit 50 years ago) Substance Abuse: No Allergies-Medications (Allergen,Severity, Reaction): Coded Allergies: No Known Allergies (Unverified , 05/27/17) Home Meds No Active Prescriptions or Reported Meds Review of Systems General / Constitutional: No: Fever, Chills HENT: Lightheadedness, No: Headaches Cardiovascular: No: Chest Pain or Discomfort Respiratory: No: Cough, Short of Breath Gastrointestinal: No: Nausea, Vomiting, Abdominal Pain Genitourinary: No: Dysuria, Pelvic Pain, Vaginal Bleeding Skin: No Rash Physical Exam Vital Signs Date Time Temp Pulse Resp B/P (MAP) Pulse Ox O2 Delivery O2 Flow Rate FiO2 05/28/17 13:48 89 18 112/57 (75) 99 Room Air 05/28/17 12:00 96.9 93 18 130/61 (84) 94 05/28/17 07:39 97.6 84 18 117/59 (78) 98 05/28/17 03:45 97.5 82 17 100/58 (72) 96 05/27/17 22:30 96.6 96 18 171/80 (110) 98 05/27/17 19:59 95 18 160/95 (116) 100 Room Air 05/27/17 19:05 92 18 151/71 (97) 98 Room Air 05/27/17 18:34 18 97 Nasal Cannula 2.00 05/27/17 18:33 97 Nasal Cannula 2.00 05/27/17 16:45 97.9 104 16 160/79 (106) 100 Narrative GENERAL: Well-nourished, well-developed patient laying in bed, no acute distress. SKIN: Warm and dry. HEAD: Normocephalic and atraumatic. EYES: No scleral icterus. No injection or drainage. ENT: No nasal drainage noted. Mucous membranes pink. Airway patent. NECK: Supple, trachea midline. No JVD. CARDIOVASCULAR: Regular rate and rhythm without murmurs, gallops, or rubs. RESPIRATORY: Breath sounds equal bilaterally. No accessory muscle use. BREASTS: Bilateral exam showed no masses , no retractions, no nipple discharge. ABDOMEN/GI: Abdomen soft, non-tender, bowel sounds present, no rebound, no guarding GENITOURINARY: External Genitalia: intact and normal in appearance Cervix: whitish with necrotic mass coming through os. Large amount of blood in vaginal vault EXTREMITIES: No cyanosis or edema. BACK: Nontender without obvious deformity. No CVA tenderness. NEUROLOGICAL: Awake and alert. Motor and sensory grossly within normal limits. Five out of 5 muscle strength in all muscle groups. Normal speech. Data Data Vital Signs Reviewed: Yes Orders Orders Complete Blood Count With Diff (05/27/17 18:24) Comprehensive Metabolic Panel (05/27/17 18:24) Iv Access Insert/Monitor (05/27/17 18:24) Ecg Monitoring (05/27/17 18:24) Oximetry (05/27/17 18:24) Lipase (05/27/17 18:24) Prothrombin Time / Inr (Pt) (05/27/17 19:18) Act Partial Throm Time (Ptt) (05/27/17 19:18) Ct Abd/Pel W Iv Contrast(Rout) (05/27/17 19:18) Iohexol 350 Inj (Omnipaque 350 Inj) (05/27/17 16:42) Us Abdomen Gallbladder (05/27/17 19:53) Consult Gastroenterology (05/27/17 ) Admit Order (Ed Use Only) (05/27/17 21:34) Diet Npo (05/28/17 Breakfast) Admit To Inpatient (05/27/17 ) Vital Signs (Adult) Q4H (05/27/17 21:42) Activity Oob With Assistance (05/27/17 21:42) Intake + Output [facility].QSHIFT (05/27/17 21:42) Sodium Chlor 0.9% 1000 Ml Inj (Ns 1000 M (05/27/17 21:42) Sodium Chloride 0.9% Flush (Ns Flush) (05/27/17 21:45) Sodium Chloride 0.9% Flush (Ns Flush) (05/28/17 09:00) Ondansetron Inj (Zofran Inj) (05/27/17 21:45) Comprehensive Metabolic Panel (05/28/17 06:00) Complete Blood Count With Diff (05/28/17 06:00) Scd Bilateral/Knee High [facility].BID (05/27/17 21:42) Tj Bilateral/Knee High [place].QSHIFT (05/27/17 21:43) Acetaminophen (Tylenol) (05/27/17 21:45) Morphine Inj (Morphine Inj) (05/27/17 21:45) Oxycodone (Roxicodone) (05/27/17 21:45) Docusate Sodium-Senna (Armida-Colace) (05/28/17 09:00) Magnesium Hydroxide Liq (Milk Of Magnesi (05/27/17 21:45) Sennosides (Senokot) (05/27/17 21:45) Bisacodyl Supp (Dulcolax Supp) (05/27/17 21:45) Lactulose Liq (Lactulose Liq) (05/27/17 21:45) Inpatient Certification (05/27/17 ) (Hub Use Only)Inp Phy Cons/Ref (05/28/17 ) Clonidine (Catapres) (05/28/17 01:30) Physician Name Changes (05/28/17 ) Consult Gynecology (05/28/17 ) (Hub Use Only)Inp Phy Cons/Ref (05/28/17 ) Pneumococcal-23 Polyvalent Inj (Pneumova (05/29/17 10:00) Influenza (Quad) Vaccine Inj (Flu (Quadr (05/29/17 10:00) Consent (05/28/17 11:03) Ca 19-9 (05/29/17 06:00) Afp, Tumor Marker (05/29/17 06:00) Otkgg-9-Xjpogoekqpc (05/29/17 06:00) Mitochondrial Total Autoabs (05/29/17 06:00) Smooth Muscle Total Autoabs (05/29/17 06:00) Ceruloplasmin (05/29/17 06:00) Nevaeh Screen (05/29/17 06:00) Hepatitis Profile (05/29/17 06:00) Ferritin (05/29/17 06:00) Iron/Tibc Profile (05/29/17 06:00) Consent (05/28/17 11:18) Diet Progression Instructions (05/28/17 12:00) ^ Obtain (05/28/17 12:00) ^ Lab Studies (05/28/17 12:00) ^ Write Order (05/28/17 12:00) Scd / Tj / Foot Pump [facility].QSHIFT (05/28/17 12:00) ^ Iv Setup For Or (05/28/17 12:00) IV (05/28/17 12:00) ^ Iv Piggyback For Or (05/28/17 12:00) Bedside Glucose .Prior to OR (05/28/17 12:00) ^ Medication Indications (05/28/17 12:00) Electrocardiogram (05/28/17 ) ERCP (05/28/17 ) Gi Lab - Ercp (05/28/17 ) Diet Npo Except Meds (05/28/17 Lunch) Hepatic Functional Panel (05/29/17 06:00) Gi Lab Recover Minimum 30m (05/28/17 ) Gi Lab Preop/Recover-Statistic (05/28/17 ) Iohexol 300 Inj (Omnipaque 300 Inj) (05/28/17 14:36) Pantoprazole (Protonix) (05/28/17 14:45) Iron/Tibc Profile (05/28/17 14:56) Ferritin (05/28/17 14:56) Type And Screen (05/28/17 14:56) Tj Bilateral/Knee High [facility].QSHIFT (05/28/17 15:03) ^ Other Nursing Orders (05/28/17 15:04) Red Blood Cells (Rbc) (05/28/17 15:05) Labs Laboratory Tests Test 05/27/17 18:28 05/27/17 19:05 05/27/17 19:25 05/28/17 05:27 Blood Urea Nitrogen 12 10 Creatinine 0.74 0.64 Random Glucose 82 77 Total Protein 5.9 5.0 Albumin 1.9 1.5 Calcium Level 8.7 8.3 Alkaline Phosphatase 1296 1051 Aspartate Amino Transf (AST/SGOT) 121 101 Alanine Aminotransferase (ALT/SGPT) 69 58 Total Bilirubin 2.9 3.1 Sodium Level 134 139 Potassium Level 4.3 3.8 Chloride Level 102 106 Carbon Dioxide Level 24.8 25.0 Anion Gap 7 8 Estimat Glomerular Filtration Rate 74 88 Lipase 196 White Blood Count 8.6 6.2 Red Blood Count 2.72 2.63 Hemoglobin 8.8 8.2 Hematocrit 24.9 24.1 Mean Corpuscular Volume 91.3 91.9 Mean Corpuscular Hemoglobin 32.3 31.3 Mean Corpuscular Hemoglobin Concent 35.4 34.1 Red Cell Distribution Width 15.0 14.8 Platelet Count 226 204 Mean Platelet Volume 8.7 8.4 Neutrophils (%) (Auto) 73.0 70.0 Lymphocytes (%) (Auto) 16.0 18.6 Monocytes (%) (Auto) 7.3 7.4 Eosinophils (%) (Auto) 2.4 2.9 Basophils (%) (Auto) 1.3 1.1 Neutrophils # (Auto) 6.3 4.3 Lymphocytes # (Auto) 1.4 1.1 Monocytes # (Auto) 0.6 0.5 Eosinophils # (Auto) 0.2 0.2 Basophils # (Auto) 0.1 0.1 CBC Comment DIFF FINAL DIFF FINAL Differential Comment Prothrombin Time 10.7 Prothromb Time International Ratio 1.1 Activated Partial Thromboplast Time 25.6 Iron Level 53 Total Iron Binding Capacity 183 Percent Iron Saturation 28.9 Ferritin 178 MDM Medical Record Reviewed: Yes Plan Post-menopausal bleeding of a few months duration, along with a uterine/ cervical mass on pelvic CT concerning for cervical cancer * Obtain a pelvic US to determine origin of mass * Mass specimen obtained by pelvic exam sent to Pathology, results pending * Monitor H&H * Consult Distiller/Onc SDW Dr. Gu and Dr. Peters Admitting diagnosis: Choledocholitiasis, uterine mass with vaginal bleeding Scripts No Active Prescriptions or Reported Meds Hailey Lui MD R1 May 28, 2017 16:13
--- NOTE | 2017-05-28 22:40 | PD.CONS ---
History & Physical H&P [facility] attending The patient is a very pleasant 86-year-old postmenopausal female who presented to the hospital with approximately 2 month history of vaginal bleeding. She reports her last Pap smear was 8 years ago and was normal. She denies any history of abnormal Pap smears. A full consultation was obtained with the assistance of the resident team. A speculum examination revealed an abnormal- appearing cervix. There was blood with possible necrotic appearing tissue at the location of the cervix. Bimanual examination revealed a mass the palpated approximately 4 cm, with some necrotic tissue present on the examining glove after examination. No adnexal masses or tenderness were appreciated. Rectovaginal exam revealed a smooth rectovaginal septum. Martha Gu MD May 28, 2017 22:39
[2017-05-28 23:34] VITALS: BP 118/67; PULSE 85; RESP 17; TEMP 99.1
[2017-05-29] MEDS: SODIUM CHLOR 0.9% 1000 ML INJ 1,000 ML IV SCH ×2 (03:42→15:22)
[2017-05-29 06:36] LABS: % SATURATION IRON PROFILE 52.1 % (20-50); ALBUMIN 1.8 GM/DL (3.4-5.0); ALT (GPT) 60 U/L (10-53); AST (GOT) 97 U/L (15-37); DIRECT BILIRUBIN ADULT 2.6 MG/DL (0.0-0.2); IRON (FE) 105 MCG/DL (50-170); TOTAL IRON BINDING CAPACITY 202 MCG/DL (250-450)
[2017-05-29 06:49] LABS: ALKALINE PHOSPHATASE 1114 U/L (45-117); FERRITIN 212 NG/ML (8-252); INDIRECT BILIRUBIN 1.1 MG/DL (0.0-0.8); TOTAL BILIRUBIN ADULT 3.7 MG/DL (0.2-1.0); TOTAL PROTEIN 5.4 GM/DL (6.4-8.2)
[2017-05-29 06:54] LABS: CA 19-9 192.4 U/ML (0.0-35.0)
[2017-05-29 08:00] VITALS: BP 161/73; PULSE 83; RESP 18; TEMP 95.7; O2SAT 98
--- NOTE | 2017-05-29 08:19 | HHI.PR ---
Subjective Remarks awake and alert, feels hungry still with vaginal bleeding + lower abdominal discomfort Objective Vitals Vital Signs Date Time Temp Pulse Resp B/P (MAP) Pulse Ox O2 Delivery O2 Flow Rate FiO2 05/28/17 16:00 97.1 94 18 132/62 (85) 97 05/28/17 13:48 89 18 112/57 (75) 99 Room Air 05/28/17 12:00 96.9 93 18 130/61 (84) 94 I/O 05/28/17 05/28/17 05/28/17 05/29/17 05/29/17 05/29/17 07:00 15:00 23:00 07:00 15:00 23:00 Intake Total 0 ml 300 ml 340 ml Balance 0 ml 300 ml 340 ml Intake Oral 0 ml Packed Cells 330 ml Blood Product IV Normal Saline Flush 10 ml Other 300 ml # Voids 1 3 # Bowel Movements 0 1 Result Diagram: 05/28/17 0527 05/28/17 0527 Imaging Last Impressions GI Procedure 05/28/17 0000 Signed Impressions: Service Date/Time: Sunday, May 28, 2017 13:24 - CONCLUSION: ERCP as above. Yair Aburto MD Gall Bladder Ultrasound 05/27/171952 Signed Impressions: Service Date/Time: Saturday, May 27, 2017 20:28 - CONCLUSION: 1. Choledocholithiasis. At least 2 subcentimeter distal duct stones causing obstruction. 2. Cholelithiasis without evidence of cholecystitis. 3. Small ascites, nonspecific. Romeo Caro MD Abdomen/Pelvis CT 05/27/171917 Signed Impressions: Service Date/Time: Saturday, May 27, 2017 19:39 - CONCLUSION: 1. Biliary obstruction at the level of the distal common bile duct and probably on the basis of stones. 2. Superimposed hepatocellular dysfunction and/or portal hypertension possible. There is ascites and splenomegaly. Portal vein is patent. 3. Large heterogeneous masslike area of the lower uterine segment/cervix. Endometrial and cervical carcinoma are both in the differential. I don't see any evidence of metastatic disease. 4. Diverticulosis without definite diverticulitis. 5. Large hiatal hernia. 6. Subcutaneous nodule mons pubis area as above and please correlate clinically. 7. Trace atelectasis and tiny effusions of the visualized lung bases. Romeo Caro MD Objective Remarks awake and alert, oriented cx 3, pale anicteric lungs- no rales or wheezes regular rhythm abdomen soft, slightly distended lower abdomen , good bowel sounds, nontender extremities no edema neuro exam- non focal Procedures 05/28 ERCP with sphincterotomy and stone extraction by balloon A/P Problem List: (1) Choledocholithiasis ICD Code: K80.50 - Calculus of bile duct without cholangitis or cholecystitis without obstruction (2) Elevated LFTs ICD Code: R79.89 - Other specified abnormal findings of blood chemistry (3) Vaginal bleeding ICD Code: N93.9 - Abnormal uterine and vaginal bleeding, unspecified Status: Acute (4) Uterine mass ICD Code: N85.9 - Noninflammatory disorder of uterus, unspecified Assessment and Plan 86 years old female admitted for elevated LFTs and abdominal pain we are dealing with 2 different conditions choledocholithiasis S/P ERCP with sphincterotomy with stone extraction 05/28 GI ff ff LFts- trend start diet- advance diet watch for pancreatitis signs Postmenopausal Vaginal Bleeding Cervical Mass post speculum exam 05/28 - suspicious necrotic mass on cervix - elevated tumor marker Gynecology service ff d/w Dr. Lui- - will get Gyne/Onco service involved Symptomatic Anemia- from ongoing Vaginal bleeding- patient S/P 1 unit RBC 05/28 stat CBC now - give another unit if H and H less than 8.5 start iron sulfate 325 mg po bid d/w patient TEDs/SCDs for DVT prophylaxis PPI for GI prophylaxis PT consult- up and ambualte- deconditioning course of hospitalization will depend on Gyne- Oncology evalaution and recommendation Jadiel Aguilar MD May 29, 2017 08:19
[2017-05-29] MEDS: DOCUSATE SODIUM 50 MG/SENNA 8.6 MG TAB PO SCH (08:50)
[2017-05-29] MEDS: PANTOPRAZOLE SOD 40 MG DELAYED RELEASE TAB PO SCH (08:50)
[2017-05-29] MEDS: SODIUM CHLORIDE 0.9% FLUSH 10 ML FLUSH IV FLUSH SCH ×2 (08:50→21:53)
[2017-05-29 09:09] LABS: HEPATITIS A AB IGM NEGATIVE (NEGATIVE); HEPATITIS B CORE AB IGM NEGATIVE (NEGATIVE); HEPATITIS B SURFACE ANTIGEN NEGATIVE (NEGATIVE); HEPATITIS C AB IgG NEGATIVE (NEGATIVE)
[2017-05-29] MEDS ORDERED: INFLUENZA VIRUS VACCINE (QUADRIVALENT) 0.5 ML SYR IM ONE (10:00)
[2017-05-29] MEDS ORDERED: PNEUMOCOCCAL POLYVALENT INJ 25 MCG/0.5 ML SYR IM ONE (10:00)
[2017-05-29 10:50] LABS: HEMATOCRIT 30.7 % (35.0-46.0); HEMOGLOBIN 10.4 GM/DL (11.6-15.3); MEAN CELL VOLUME 93.6 FL (80.0-100.0); MEAN CORPUSCULAR HEMOGLOBIN 31.7 PG (27.0-34.0); MEAN CORPUSCULAR HGB CONC 33.9 % (32.0-36.0); MEAN PLATELET VOLUME 8.7 FL (7.0-11.0); PLATELET COUNT 227 TH/MM3 (150-450); RED BLOOD COUNT 3.29 MIL/MM3 (4.00-5.30); RED CELL DISTRIBUTION WIDTH 14.9 % (11.6-17.2); WHITE BLOOD COUNT 8.4 TH/MM3 (4.0-11.0)
[2017-05-29 11:12] LABS: ALBUMIN 1.6 GM/DL (3.4-5.0); ALT (GPT) 55 U/L (10-53); AST (GOT) 93 U/L (15-37); BICARBONATE 22.7 MEQ/L (21.0-32.0); BLOOD UREA NITROGEN 11 MG/DL (7-18); CALCIUM 7.7 MG/DL (8.5-10.1); CHLORIDE 108 MEQ/L (98-107); CREATININE 0.58 MG/DL (0.50-1.00); GLOMERULAR FILTRATION RATE 98 ML/MIN (>89); GLUCOSE,RANDOM 71 MG/DL (74-106); SODIUM (NA) 140 MEQ/L (136-145)
[2017-05-29 11:26] LABS: ALKALINE PHOSPHATASE 1052 U/L (45-117); TOTAL BILIRUBIN ADULT 3.2 MG/DL (0.2-1.0); TOTAL PROTEIN 4.9 GM/DL (6.4-8.2)
[2017-05-29] MEDS: FERROUS SULFATE 325 MG (65 MG ELEMENTAL IRON) TAB PO SCH ×2 (11:41→21:49)
[2017-05-29 12:00] VITALS: BP 113/56; PULSE 89; RESP 18; TEMP 96.6; O2SAT 100
--- NOTE | 2017-05-29 12:43 | HHI.GIFU ---
Subjective Remarks Pt resting in bed, seems tired today. NO abd pain. Had eggs and torres and then fecal incontinence. (Kristy Crespo) Objective Vitals I&O Vital Signs Date Time Temp Pulse Resp B/P (MAP) Pulse Ox O2 Delivery O2 Flow Rate FiO2 05/29/17 12:00 96.6 89 18 113/56 (75) 100 05/29/17 08:00 95.7 83 18 161/73 (102) 98 05/28/17 23:34 99.1 85 17 118/67 05/28/17 16:00 97.1 94 18 132/62 (85) 97 05/28/17 13:48 89 18 112/57 (75) 99 Room Air I/O 05/28/17 05/28/17 05/28/17 05/29/17 05/29/17 05/29/17 07:00 15:00 23:00 07:00 15:00 23:00 Intake Total 0 ml 300 ml 340 ml Balance 0 ml 300 ml 340 ml Intake Oral 0 ml Packed Cells 330 ml Blood Product IV Normal Saline Flush 10 ml Other 300 ml # Voids 1 3 # Bowel Movements 0 1 Laboratory Laboratory Tests Test 05/29/17 04:50 05/29/17 09:40 05/29/17 11:05 Iron Level 105 Total Iron Binding Capacity 202 Percent Iron Saturation 52.1 Ferritin 212 Total Bilirubin 3.7 3.2 Direct Bilirubin 2.6 Indirect Bilirubin 1.1 Aspartate Amino Transf (AST/SGOT) 97 93 Alanine Aminotransferase (ALT/SGPT) 60 55 Alkaline Phosphatase 1114 1052 Total Protein 5.4 4.9 Albumin 1.8 1.6 Tumor Marker Alpha Fetoprotein 6.3 CA 19-9 Antigen 192.4 Hepatitis A IgM Antibody NEGATIVE Hepatitis B Surface Antigen NEGATIVE Hepatitis B Core IgM Antibody NEGATIVE Hepatitis C Antibody NEGATIVE White Blood Count 8.4 Red Blood Count 3.29 Hemoglobin 10.4 Hematocrit 30.7 Mean Corpuscular Volume 93.6 Mean Corpuscular Hemoglobin 31.7 Mean Corpuscular Hemoglobin Concent 33.9 Red Cell Distribution Width 14.9 Platelet Count 227 Mean Platelet Volume 8.7 Blood Urea Nitrogen 11 Creatinine 0.58 Random Glucose 71 Calcium Level 7.7 Sodium Level 140 Potassium Level 3.7 Chloride Level 108 Carbon Dioxide Level 22.7 Anion Gap 9 Estimat Glomerular Filtration Rate 98 Imaging Last Impressions GI Procedure 05/28/17 0000 Signed Impressions: Service Date/Time: Sunday, May 28, 2017 13:24 - CONCLUSION: ERCP as above. Yair Aburto MD Gall Bladder Ultrasound 05/27/171952 Signed Impressions: Service Date/Time: Saturday, May 27, 2017 20:28 - CONCLUSION: 1. Choledocholithiasis. At least 2 subcentimeter distal duct stones causing obstruction. 2. Cholelithiasis without evidence of cholecystitis. 3. Small ascites, nonspecific. Romeo Caro MD Abdomen/Pelvis CT 05/27/171917 Signed Impressions: Service Date/Time: Saturday, May 27, 2017 19:39 - CONCLUSION: 1. Biliary obstruction at the level of the distal common bile duct and probably on the basis of stones. 2. Superimposed hepatocellular dysfunction and/or portal hypertension possible. There is ascites and splenomegaly. Portal vein is patent. 3. Large heterogeneous masslike area of the lower uterine segment/cervix. Endometrial and cervical carcinoma are both in the differential. I don't see any evidence of metastatic disease. 4. Diverticulosis without definite diverticulitis. 5. Large hiatal hernia. 6. Subcutaneous nodule mons pubis area as above and please correlate clinically. 7. Trace atelectasis and tiny effusions of the visualized lung bases. Romeo Crao MD Physical Exam HEENT: PERRL; normocephalic; atraumatic; mild icterus jaundice. CHEST: CTA CARDIAC: RRR ABDOMEN: Soft, mildly distended, nontender; no hepatosplenomegaly; bowel sounds are present in all four quadrants. EXTREMITIES: No clubbing, cyanosis, or edema. SKIN: Normal; no rash; mild jaundice. REGIONAL DIRECTOR: Lethargic (Kristy Crespo SECRETARY OFFICE CLERK) Assessment and Plan Plan ASSESSMENT - elevated LFTs, abnormal imaging - choledocholithiasis. Liver chemistries elevated in obstructive pattern. US GB showed stones in bile duct. CT as above, showed CBD obstruction, poss superimposed hepatocellular dysfunction and/or portal HTN, ascites, splenomegaly, dilated pancreatic duct. will get liver w/u she denies abd pain or prior hx liver problems, gallbladder problems, drinking - cholelithiasis - imaging as above - uterine mass - seen on CT. social worker consult pending 05/29/17 s/p ERCP 05/28 with 4 x stones removed, sphincterotomy, prominent ampulla. social worker evaluating for necrotic appearing uterine mass, bx pending. LFTs mild worsening today. AFP 6.3. elevated CA 19-9. now with worsening loose stool and fecal incontinence after eating, c diff pending PLAN - MRCP - await c diff - stool studies - MARK - monitor labs - LFTs in am - await social worker f/u, bx - further recs to follow pt seen by myself and Dr Chou and this note is written on his behalf (Kristy Crespo) Plan Patient was seen and examined, agree with above-noted, we are waiting for the stool study and MRCP since she has elevated tumor markers, this could be related to her known uterus and cervical mass (Susan Chou MD) Kristy Crespo May 29, 2017 12:43 Susan Chou MD May 29, 2017 19:22
--- NOTE | 2017-05-29 15:24 | PD.CONS ---
History of Present Illness Service costumer/onc Consult Requested By Dr. Marian Lui Reason for Consult cervical mass vaginal bleeding Primary Care Physician Compa Mandujano DO Diagnoses: (1) Mass of uterine cervix (2) Vaginal bleeding History of Present Illness This is a very pleasant 86 year old history with argueta 3 month history of vaginal bleeding and urinary incontinence. She was referred to ER for elevated liver function tests. She reports that she has had pelvic pain, vaginal bleeding and increased weakness over past few months. She tells me she was also having diarrhea off and on. She was seen and evaluated in the ER, CT scan obtained shown biliary obstruction at the level of the distal common bile duct, U/S obtained shown choledocholithiasis and obstruction, patient was seen by Dr. Chou and ERCP was performed. CT also shown uterine mass at the lower uterine segment unsure if arising from uterus vs. cervix. Patient was seen by general costumer where exam perform shown mass on cervix with necrotic tissue observed. Biopsy was obtained and currently pathology is pending. Review of Systems Gastrointestinal: COMPLAINS OF: Abdominal pain, Diarrhea Genitourinary: COMPLAINS OF: Abnormal vaginal bleeding, Urinary incontinence Except as stated in HPI: all other systems reviewed are Neg Past Family Social History Allergies: Coded Allergies: No Known Allergies (Unverified , 05/27/17) Past Medical History GERD Past Surgical History hemorrhoidectomy Reported Medications per emr Active Ordered Medications Current Medications Iohexol (Omnipaque 350 Inj) 90 ml STK-MED ONCE IVCONTRAST Last administered on 05/27/17at 16:42; Start 05/27/17 at 16:42; Stop 05/27/17 at 19:43; Status DC Sodium Chloride 1,000 ml @ 100 mls/hr Q10H IV Last administered on 05/28/17at 08:45; Start 05/27/17 at 21:42 Sodium Chloride (NS Flush) 2 ml UNSCH PRN IV FLUSH FLUSH AFTER USING IV ACCESS ; Start 05/27/17 at 21:45 Sodium Chloride (NS Flush) 2 ml BID IV FLUSH Last administered on 05/28/17at 21: 52; Start 05/28/17 at 09:00 Ondansetron HCl (Zofran Inj) 4 mg Q6H PRN IVP NAUSEA OR VOMITING; Start at 21:45 Acetaminophen (Tylenol) 650 mg Q6H PRN PO FEVER; Start 05/27/17 at 21:45 Morphine Sulfate (Morphine Inj) 2 mg Q3H PRN IV PUSH Pain 6-10; Start 05/27/17 at 21:45 Oxycodone HCl (Roxicodone) 5 mg Q4H PRN PO PAIN SCALE 3 TO 5; Start 05/27/17 at 21:45 Senna/Docusate Sodium (Armida-Colace) 1 tab BID PO Last administered on at 08:50; Start 05/28/17 at 09:00; Stop 05/29/17 at 11:38; Status DC Magnesium Hydroxide (Milk Of Magnesia Liq) 30 ml Q12H PRN PO Mild constipation ; Start 05/27/17 at 21:45 Sennosides (Senokot) 17.2 mg Q12H PRN PO Moderate constipation; Start 05/27/17 at 21:45 Bisacodyl (Dulcolax Supp) 10 mg DAILY PRN RECTAL SEVERE CONSITIPATION; Start at 21:45; Status Cancel Lactulose (Lactulose Liq) 30 ml DAILY PRN PO SEVERE CONSITIPATION; Start at 21:45 Pneumococcal Polyvalent Vaccine (Pneumovax-23 Inj) 25 mcg ONCE ONCE IM ; Start 05/28/17 at 10:00; Stop 05/28/17 at 10:01; Status Cancel Influenza Virus Vaccine (Flu (Quadrivalent) Vaccine Inj) 0.5 ml ONCE ONCE IM ; Start 05/28/17 at 10:00; Stop 05/28/17 at 10:01; Status Cancel Clonidine (Catapres) 0.1 mg ONCE ONCE PO Last administered on 05/28/17at 01:34 ; Start 05/28/17 at 01:30; Stop 05/28/17 at 01:31; Status DC Pneumococcal Polyvalent Vaccine (Pneumovax-23 Inj) 25 mcg ONCE ONCE IM ; Start 05/29/17 at 10:00; Stop 05/29/17 at 10:01; Status DC Influenza Virus Vaccine (Flu (Quadrivalent) Vaccine Inj) 0.5 ml ONCE ONCE IM ; Start 05/29/17 at 10:00; Stop 05/29/17 at 10:01; Status DC Iohexol 50 ml @ 0 mls/hr ONCE ONCE IV ; Start 05/28/17 at 14:36; Stop 05/28/17 at 14:38; Status DC Pantoprazole Sodium (Protonix) 40 mg DAILY PO Last administered on 05/29/17at 08 :50; Start 05/28/17 at 14:45 Ferrous Sulfate (Ferrous Sulfate) 325 mg BID PO Last administered on 05/29/17at 11:41; Start 05/29/17 at 09:00 Social History was living alone has a daughter and son for support Physical Exam Vital Signs Vital Signs Date Time Temp Pulse Resp B/P (MAP) Pulse Ox O2 Delivery O2 Flow Rate FiO2 05/29/17 12:00 96.6 89 18 113/56 (75) 100 05/28/17 13:48 Room Air 05/27/17 18:34 2.00 Vital Signs Date Time Temp Pulse Resp B/P (MAP) Pulse Ox O2 Delivery O2 Flow Rate FiO2 05/29/17 12:00 96.6 89 18 113/56 (75) 100 05/29/17 08:00 95.7 83 18 161/73 (102) 98 05/28/17 23:34 99.1 85 17 118/67 05/28/17 16:00 97.1 94 18 132/62 (85) 97 Physical Exam GENERAL: This is a frail SKIN: No rashes, ecchymoses or lesions. Cool and dry. HEAD: Atraumatic. Normocephalic. No temporal or scalp tenderness. EYES: Pupils equal round and reactive. Extraocular motions intact. No scleral icterus. No injection or drainage. CARDIOVASCULAR: Regular rate and rhythm without murmurs, gallops, or rubs. RESPIRATORY: Clear to auscultation. Breath sounds equal bilaterally. No wheezes , rales, or rhonchi. GASTROINTESTINAL: Abdomen soft, non-tender, nondistended. MUSCULOSKELETAL: Extremities without clubbing, cyanosis, or edema. Negative Homans sign bilaterally. NEUROLOGICAL: Awake and alert. Normal speech. Laboratory Laboratory Tests Test 05/27/17 18:28 05/27/17 19:25 05/28/17 05:27 05/29/17 04:50 Lipase 196 U/L Prothrombin Time 10.7 SEC Prothromb Time International Ratio 1.1 RATIO Activated Partial Thromboplast Time 25.6 SEC Neutrophils (%) (Auto) 70.0 % Lymphocytes (%) (Auto) 18.6 % Monocytes (%) (Auto) 7.4 % Eosinophils (%) (Auto) 2.9 % Basophils (%) (Auto) 1.1 % Neutrophils # (Auto) 4.3 TH/MM3 Lymphocytes # (Auto) 1.1 TH/MM3 Monocytes # (Auto) 0.5 TH/MM3 Eosinophils # (Auto) 0.2 TH/MM3 Basophils # (Auto) 0.1 TH/MM3 CBC Comment DIFF FINAL Differential Comment Iron Level 105 MCG/DL Total Iron Binding Capacity 202 MCG/DL Percent Iron Saturation 52.1 % Ferritin 212 NG/ML Direct Bilirubin 2.6 MG/DL Indirect Bilirubin 1.1 MG/DL Tumor Marker Alpha Fetoprotein 6.3 NG/ML CA 19-9 Antigen 192.4 U/ML Hepatitis A IgM Antibody NEGATIVE Hepatitis B Surface Antigen NEGATIVE Hepatitis B Core IgM Antibody NEGATIVE Hepatitis C Antibody NEGATIVE Test 05/29/17 09:40 05/29/17 11:05 White Blood Count 8.4 TH/MM3 Red Blood Count 3.29 MIL/MM3 Hemoglobin 10.4 GM/DL Hematocrit 30.7 % Mean Corpuscular Volume 93.6 FL Mean Corpuscular Hemoglobin 31.7 PG Mean Corpuscular Hemoglobin Concent 33.9 % Red Cell Distribution Width 14.9 % Platelet Count 227 TH/MM3 Mean Platelet Volume 8.7 FL Blood Urea Nitrogen 11 MG/DL Creatinine 0.58 MG/DL Random Glucose 71 MG/DL Total Protein 4.9 GM/DL Albumin 1.6 GM/DL Calcium Level 7.7 MG/DL Alkaline Phosphatase 1052 U/L Aspartate Amino Transf (AST/SGOT) 93 U/L Alanine Aminotransferase (ALT/SGPT) 55 U/L Total Bilirubin 3.2 MG/DL Sodium Level 140 MEQ/L Potassium Level 3.7 MEQ/L Chloride Level 108 MEQ/L Carbon Dioxide Level 22.7 MEQ/L Anion Gap 9 MEQ/L Estimat Glomerular Filtration Rate 98 ML/MIN Stool C. difficile Toxin (PCR) NEGATIVE Stl C. difficile Toxin Epiderm 027 PRESUMPTIVE NEGATIVE Laboratory Tests Test 05/29/17 04:50 05/29/17 09:40 05/29/17 11:05 Iron Level 105 Total Iron Binding Capacity 202 Percent Iron Saturation 52.1 Ferritin 212 Total Bilirubin 3.7 3.2 Direct Bilirubin 2.6 Indirect Bilirubin 1.1 Aspartate Amino Transf (AST/SGOT) 97 93 Alanine Aminotransferase (ALT/SGPT) 60 55 Alkaline Phosphatase 1114 1052 Total Protein 5.4 4.9 Albumin 1.8 1.6 Tumor Marker Alpha Fetoprotein 6.3 CA 19-9 Antigen 192.4 Hepatitis A IgM Antibody NEGATIVE Hepatitis B Surface Antigen NEGATIVE Hepatitis B Core IgM Antibody NEGATIVE Hepatitis C Antibody NEGATIVE White Blood Count 8.4 Red Blood Count 3.29 Hemoglobin 10.4 Hematocrit 30.7 Mean Corpuscular Volume 93.6 Mean Corpuscular Hemoglobin 31.7 Mean Corpuscular Hemoglobin Concent 33.9 Red Cell Distribution Width 14.9 Platelet Count 227 Mean Platelet Volume 8.7 Blood Urea Nitrogen 11 Creatinine 0.58 Random Glucose 71 Calcium Level 7.7 Sodium Level 140 Potassium Level 3.7 Chloride Level 108 Carbon Dioxide Level 22.7 Anion Gap 9 Estimat Glomerular Filtration Rate 98 Stool C. difficile Toxin (PCR) NEGATIVE Stl C. difficile Toxin Epiderm 027 PRESUMPTIVE NEGATIVE Result Diagram: 05/29/17 0940 05/29/17 0940 Imaging Last Impressions GI Procedure 05/28/17 0000 Signed Impressions: Service Date/Time: Sunday, May 28, 2017 13:24 - CONCLUSION: ERCP as above. Yair Aburto MD Gall Bladder Ultrasound 05/27/171952 Signed Impressions: Service Date/Time: Saturday, May 27, 2017 20:28 - CONCLUSION: 1. Choledocholithiasis. At least 2 subcentimeter distal duct stones causing obstruction. 2. Cholelithiasis without evidence of cholecystitis. 3. Small ascites, nonspecific. Romeo Caro MD Abdomen/Pelvis CT 05/27/171917 Signed Impressions: Service Date/Time: Saturday, May 27, 2017 19:39 - CONCLUSION: 1. Biliary obstruction at the level of the distal common bile duct and probably on the basis of stones. 2. Superimposed hepatocellular dysfunction and/or portal hypertension possible. There is ascites and splenomegaly. Portal vein is patent. 3. Large heterogeneous masslike area of the lower uterine segment/cervix. Endometrial and cervical carcinoma are both in the differential. I don't see any evidence of metastatic disease. 4. Diverticulosis without definite diverticulitis. 5. Large hiatal hernia. 6. Subcutaneous nodule mons pubis area as above and please correlate clinically. 7. Trace atelectasis and tiny effusions of the visualized lung bases. Romeo Caro MD Assessment and Plan Problem List: (1) Mass of uterine cervix ICD Codes: N88.8 - Other specified noninflammatory disorders of cervix uteri Plan: Biopsy obtained on 05/28/17 currently results pending I explained that this could be cervix vs. endometrial cancer...treatment can be different depending on the origin of the cancer. I explained the treatment options for uterine cancer, consideration of RA lap hyst with BSO. I explained the approach to the surgery and briefly the recovery. I explained their is a high suspicion of cervical cancer because of the location of the mass, symptoms and description per costumer note. If this turns out to be a cancer arising from the cervix then most likely radiation with weekly cisplatin would be recommended. I explained the treatment regime and potential side effects of IV chemotherapy. Ms. Ramon told me she would not be interested in treatment. She feels that she has had a long healthy life and she would be interested in Hospice care. Her daughter is at her bedside and tells me that she and her mother have had long discussions about this subject, and she supports her mother's choice. I explained that at this time we do not have a diagnosis. I clarified if she would be interested in a hysterectomy, if the diagnosis is uterine cancer, and again she stated that she is comfortable with no treatment, she is not interested in surgery. Her daughter asked, Is there anyway we could stop the bleeding? I stated that it would stop with surgery or if radiation is recommended the vaginal bleeding would stop. Ms. Ramon again tells me that she is comfortable with her decision not to have treatment. Consult to Hospice was placed for information gathering. (2) Vaginal bleeding ICD Codes: N93.9 - Abnormal uterine and vaginal bleeding, unspecified Status: Acute Plan: as above, r/t cervix vs. uterine cancer (3) Choledocholithiasis ICD Codes: K80.50 - Calculus of bile duct without cholangitis or cholecystitis without obstruction Plan: GI following s/p ERCP Discussed Condition With patient and daughter RN Jan Rae May 29, 2017 15:24
[2017-05-29 16:00] VITALS: BP 149/71; PULSE 87; RESP 18; TEMP 96.8; O2SAT 97
--- NOTE | 2017-05-29 18:36 | RADRPT ---
EXAM DATE/TIME: 05/29/2017 17:36 [facility] COMPARISON: No previous studies available for comparison. INDICATIONS : Vaginal bleeding. MEDICAL HISTORY : Gastroesophageal reflux disease. Pelvic pain. Vaginal bleeding. Liver disease. Incontinence. Donald les. SURGICAL HISTORY : Hemorrhoidectomy. ENCOUNTER: Initial ACUITY: 1 day PAIN SCORE: 0/10 LOCATION: Bilateral pelvis MEASUREMENTS: UTERUS: 9.1 x 6.3 x 5.1 cm ENDOMETRIAL STRIPE: 13 mm RIGHT OVARY: Nonvisualized LEFT OVARY: Nonvisualized FINDINGS: UTERUS: There is endometrial thickening as well as a mass-like lesion in the region of the cervix measuring 3 .3 x 3.3 x 2.7 cm. A complex area is also noted within the fundus of the uterus measuring 3.6 x 2.7 x 1.8 cm. The findings are abnormal the patient is age and raise the possibility of endometrial carcin christina. Clinical correlation is recommended. RIGHT OVARY: Nonvisualized. LEFT OVARY: Nonvisualized. MISCELLANEOUS: Free fluid is noted within the cul-de-sac. CONCLUSION: 1. Endometrial thickening as well as a mass-like lesion in the region of the cervix measuring 3.3 x 3 .3 x 2.7 cm. A complex area is also noted within the fundus of the uterus measuring 3.6 x 2.7 x 1.8 c m. The findings are abnormal the patient is age and raise the possibility of endometrial carcinoma. C linical correlation is recommended. 2. Free fluid within the cul-de-sac. 3. Nonvisualization of the ovaries. Deonte Cmaarillo MD on May 29, 2017 at 18:29 Board Certified Radiologist. This report was verified electronically.
[2017-05-29 20:23] VITALS: BP 149/70; PULSE 92; RESP 16; TEMP 96.9; O2SAT 97
[2017-05-30 00:20] VITALS: BP 135/63; PULSE 84; RESP 16; TEMP 97.2; O2SAT 97
--- NOTE | 2017-05-30 01:18 | EKG ---
Date Performed: 05/28/2017 Time Performed: 12:36:04 PTAGE: 86 years EKG: Sinus rhythm NORMAL ECG NO PREVIOUS TRACING DOCTOR: Aj Joe Interpretating Date/Time 05/30/2017 01:16:25
--- NOTE | 2017-05-30 06:45 | HHI.PR ---
Subjective . sleeping soundly Objective . difficult to awake/arouse. appears to be sleeping comfortably findings reviewed, path (biopsy result pending) suspicious for cervix cancer yesterday she & daughter had lengthy discussion with STACIE Mendoza and is certain she wishes for no further diagnostic or treatment intervention. she has requested hospice, and this decision is supported Assessment/Plan . consult hospice in keeping with her expressed wishes no further recommendations from a molder inflated ball/onc standpoint Maria G Owens MD May 30, 2017 06:45
[2017-05-30 08:00] VITALS: BP 170/75; PULSE 88; RESP 17; TEMP 96.9; O2SAT 95
[2017-05-30] MEDS ORDERED: GADODIAMIDE PF 287 MG/ML 10 ML VIAL (for RAD MRI) IV PUSH ONE (08:58)
[2017-05-30] MEDS: SODIUM CHLORIDE 0.9% FLUSH 10 ML FLUSH IV FLUSH SCH ×2 (09:00→21:00)
[2017-05-30 09:12] LABS: ALBUMIN 1.7 GM/DL (3.4-5.0)
[2017-05-30 09:30] LABS: DIRECT BILIRUBIN ADULT 2.2 MG/DL (0.0-0.2); INDIRECT BILIRUBIN 0.7 MG/DL (0.0-0.8); TOTAL BILIRUBIN ADULT 2.9 MG/DL (0.2-1.0); TOTAL PROTEIN 4.9 GM/DL (6.4-8.2)
[2017-05-30] MEDS: SODIUM CHLOR 0.9% 1000 ML INJ 1,000 ML IV SCH ×3 (09:42→19:42)
--- NOTE | 2017-05-30 10:04 | RADRPT ---
EXAM DATE/TIME: 05/30/2017 08:23 [place] COMPARISON: GI LAB ERCP, May 28, 2017, 13:24. US ABDOMEN - GALLBLADDER, May 27, 2017, 20:28. CT ABDOMEN & PELVIS W CONTRAST, May 27, 2017, 19:39. INDICATIONS : Patient with right upper quadrant abdominal pain and abnormal CT and ultrasound demonstrating choleli thiasis and choledocholithiasis. ERCP exam demonstrated distal obstruction and mass. CONTRAST: 9 cc Omniscan (gadodiamide) IV MEDICAL HISTORY : Hypertension. SURGICAL HISTORY : Tonsillectomy. Appendectomy. Hemorrhoidectomy. ENCOUNTER: Initial ACUITY: 2 day PAIN SCORE: 3/10 LOCATION: Abdomen TECHNIQUE: Multiplanar, multisequence magnetic resonance imaging of the abdomen was performed. High-resolution 3D dataset was utilized to reconstruct maximum-intensity projection (MIP) images. FINDINGS: The study is degraded by diffuse motion artifact. INTRAHEPATIC BILE DUCTS: Within normal limits. No significant anatomical variant is present. EXTRAHEPATIC BILE DUCTS: The common bile duct measures 1 cm. No definite filling defect is identified. No distal obstructing m ass is visualized. GALLBLADDER: Normal in size and shape with several small filling defects in appearance sludge. There is ascitic fl uid and pericholecystic fluid in the right upper quadrant which is nonspecific. LIVER: Normal size and signal intensity. No liver lesion is identified. Portal vein is within normal limits . PANCREAS: The main pancreatic duct is mildly prominent measuring 3-4 mm in size distally there is no filling de fect is identified.. There is no significant anatomical variant. Signal intensity is within normal limits. No mass is visualized however visualization is suboptimal secondary to motion artifact espec ially on the axial T2-weighted images. OTHER: There are small bilateral pleural effusions. There is a moderate size retrocardiac hiatal hernia. A m oderate amount of ascitic fluid is present surrounding the liver and left paracolic gutter. The remai eloy visualized structures demonstrate no acute abnormality. CONCLUSION: 1. Suboptimal study secondary to diffuse motion artifact. 2. Dilatation of the common bile duct is again identified measuring up to 1 cm with no definite filli ng defects identified. 3. Cholelithiasis and appearance sludge. There is pericholecystic fluid as well as ascites in the rig ht upper quadrant. 4. Mild dilatation of the distal pancreatic duct up to 3-4 mm with no filling defect. No definite folres creatic mass is visualized. 5. Moderate ascitic fluid. 6. Small bilateral pleural effusions. Yair Aburto MD on May 30, 2017 at 9:50 Board Certified Radiologist. This report was verified electronically.
[2017-05-30] MEDS: FERROUS SULFATE 325 MG (65 MG ELEMENTAL IRON) TAB PO SCH ×2 (11:18→21:00)
[2017-05-30] MEDS: PANTOPRAZOLE SOD 40 MG DELAYED RELEASE TAB PO SCH (11:18)
[2017-05-30 12:00] VITALS: BP 158/59; PULSE 88; RESP 17; TEMP 97; O2SAT 97
[2017-05-30 12:27] LABS: ALPHA-1-ANTITRYPSIN 259 mg/dL (100 - 190)
[2017-05-30 13:32] LABS: SMOOTH MUSCLE TOTAL AUTOABS Negative (Negative)
--- NOTE | 2017-05-30 14:05 | HHI.GIFU ---
Subjective Remarks Pt resting in bed, son at bedside. Diarrhea has improved, she has had a formed stool. No complaints. (Kristy Crespo) Objective Vitals I&O Vital Signs Date Time Temp Pulse Resp B/P (MAP) Pulse Ox O2 Delivery O2 Flow Rate FiO2 05/30/17 12:00 97.0 88 17 158/59 (92) 97 05/30/17 08:00 96.9 88 17 170/75 (106) 95 05/30/17 00:20 97.2 84 16 135/63 (87) 97 05/29/17 20:23 96.9 92 16 149/70 (96) 97 05/29/17 16:00 96.8 87 18 149/71 (97) 97 I/O 05/29/17 05/29/17 05/29/17 05/30/17 05/30/17 05/30/17 06:59 14:59 22:59 06:59 14:59 22:59 Intake Total 340 ml 600 ml 240 ml 0 ml Balance 340 ml 600 ml 240 ml 0 ml Intake Oral 600 ml 240 ml 0 ml Packed Cells 330 ml Blood Product IV Normal Saline Flush 10 ml # Voids 4 2 2 # Bowel Movements 2 0 0 Laboratory Laboratory Tests Test 05/30/17 07:22 Total Bilirubin 2.9 Direct Bilirubin 2.2 Indirect Bilirubin 0.7 Aspartate Amino Transf (AST/SGOT) 85 Alanine Aminotransferase (ALT/SGPT) 53 Alkaline Phosphatase 1046 Total Protein 4.9 Albumin 1.7 Date/Time Source Procedure Growth Status 05/29/17 11:05 Stool Stool Cryptosporidium Exam Pending Received 05/29/17 11:05 Stool Stool Giardia Antigen (BRIJESH) Pending Received Imaging Last Impressions Cholangiopancreatography MRI 05/30/17 0000 Signed Impressions: Service Date/Time: Tuesday, May 30, 2017 08:23 - CONCLUSION: 1. Suboptimal study secondary to diffuse motion artifact. 2. Dilatation of the common bile duct is again identified measuring up to 1 cm with no definite filling defects identified. 3. Cholelithiasis and appearance sludge. There is pericholecystic fluid as well as ascites in the right upper quadrant. 4. Mild dilatation of the distal pancreatic duct up to 3-4 mm with no filling defect. No definite pancreatic mass is visualized. 5. Moderate ascitic fluid. 6. Small bilateral pleural effusions. Yair Aburto MD Pelvis Ultrasound 05/29/17 0000 Signed Impressions: Service Date/Time: Monday, May 29, 2017 17:36 - CONCLUSION: 1. Endometrial thickening as well as a mass-like lesion in the region of the cervix measuring 3.3 x 3.3 x 2.7 cm. A complex area is also noted within the fundus of the uterus measuring 3.6 x 2.7 x 1.8 cm. The findings are abnormal the patient is age and raise the possibility of endometrial carcinoma. Clinical correlation is recommended. 2. Free fluid within the cul-de-sac. 3. Nonvisualization of the ovaries. Deonte Camarillo MD GI Procedure 05/28/17 0000 Signed Impressions: Service Date/Time: Sunday, May 28, 2017 13:24 - CONCLUSION: ERCP as above. Yair Aburto MD Gall Bladder Ultrasound 05/27/171952 Signed Impressions: Service Date/Time: Saturday, May 27, 2017 20:28 - CONCLUSION: 1. Choledocholithiasis. At least 2 subcentimeter distal duct stones causing obstruction. 2. Cholelithiasis without evidence of cholecystitis. 3. Small ascites, nonspecific. Romeo Caro MD Abdomen/Pelvis CT 05/27/[id number] Signed Impressions: Service Date/Time: Saturday, May 27, 2017 19:39 - CONCLUSION: 1. Biliary obstruction at the level of the distal common bile duct and probably on the basis of stones. 2. Superimposed hepatocellular dysfunction and/or portal hypertension possible. There is ascites and splenomegaly. Portal vein is patent. 3. Large heterogeneous masslike area of the lower uterine segment/cervix. Endometrial and cervical carcinoma are both in the differential. I don't see any evidence of metastatic disease. 4. Diverticulosis without definite diverticulitis. 5. Large hiatal hernia. 6. Subcutaneous nodule mons pubis area as above and please correlate clinically. 7. Trace atelectasis and tiny effusions of the visualized lung bases. Romeo Caro MD Physical Exam HEENT: PERRL; normocephalic; atraumatic; mild icterus CHEST: CTA CARDIAC: RRR ABDOMEN: Soft, mildly distended, nontender; no hepatosplenomegaly; bowel sounds are present in all four quadrants. EXTREMITIES: No clubbing, cyanosis, or edema. SKIN: Normal; no rash; mild jaundice. RELIEF CHARGE NURSE:alert and oriented (Kristy Crespo) Assessment and Plan Plan ASSESSMENT - elevated LFTs, abnormal imaging - choledocholithiasis. Liver chemistries elevated in obstructive pattern. US GB showed stones in bile duct. CT as above, showed CBD obstruction, poss superimposed hepatocellular dysfunction and/or portal HTN, ascites, splenomegaly, dilated pancreatic duct. will get liver w/u she denies abd pain or prior hx liver problems, gallbladder problems, drinking - cholelithiasis - imaging as above - uterine mass - seen on CT. rn gynecology consult pending 05/29/17 s/p ERCP 05/28 with 4 x stones removed, sphincterotomy, prominent ampulla. rn gynecology evaluating for necrotic appearing uterine mass, bx pending. LFTs mild worsening today. AFP 6.3. elevated CA 19-9. now with worsening loose stool and fecal incontinence after eating, c diff pending 05/30/17 diarrhea improved. MRCP noted, no stones or obstruction. Pt opting for hospice, does not desire tx of cervical/uterine mass. LFTs trending down, she has no GI complaints. elev ca 19-9 could be d/t mass. c diff neg, enteric path neg. PLAN - if diarrhea recurrs and rest of stool studies neg can do cholestyramine - MARK - monitor labs - await hospice consult - GI will sign off, please reconsult if needed pt seen by myself and Dr Chou and this note is written on his behalf (Kristy Crespo) Plan Patient was seen and examined, no abdominal pain, MRCP did not show pancreatic mass, she is going for hospice (Susan Chou MD) Kristy Crespo May 30, 2017 14:05 Susan Chou MD May 30, 2017 16:11
[2017-05-30 16:00] VITALS: BP 148/81; PULSE 87; RESP 17; TEMP 97.7; O2SAT 95
--- NOTE | 2017-05-30 16:40 | HHI.PR ---
Subjective Remarks Patient resting in bed, denied pain at this point, Discussed with the patient she confirmed her decision to go with hospice which was consulted Objective Vitals Vital Signs Date Time Temp Pulse Resp B/P (MAP) Pulse Ox O2 Delivery O2 Flow Rate FiO2 05/30/17 12:00 97.0 88 17 158/59 (92) 97 05/30/17 08:00 96.9 88 17 170/75 (106) 95 05/30/17 00:20 97.2 84 16 135/63 (87) 97 05/29/17 20:23 96.9 92 16 149/70 (96) 97 I/O 05/29/17 05/29/17 05/29/17 05/30/17 05/30/17 05/30/17 07:00 15:00 23:00 07:00 15:00 23:00 Intake Total 340 ml 600 ml 240 ml 0 ml Balance 340 ml 600 ml 240 ml 0 ml Intake Oral 600 ml 240 ml 0 ml Packed Cells 330 ml Blood Product IV Normal Saline Flush 10 ml # Voids 4 2 2 # Bowel Movements 2 0 0 Result Diagram: 05/29/17 0940 05/29/17 0940 Objective Remarks GENERAL: This is a well-nourished, well-developed patient, in no apparent distress. CARDIOVASCULAR: Regular rate and rhythm without murmurs, gallops, or rubs. RESPIRATORY: Clear to auscultation. Breath sounds equal bilaterally. No wheezes , rales, or rhonchi. GASTROINTESTINAL: Abdomen soft, non-tender, nondistended. Normal active bowel sounds MUSCULOSKELETAL: Extremities without clubbing, cyanosis, or edema. NEURO: Alert & Oriented x4 to person, place, time, situation. Moves all ext x4 Procedures 05/28 ERCP with sphincterotomy and stone extraction by balloon A/P Problem List: (1) Choledocholithiasis ICD Code: K80.50 - Calculus of bile duct without cholangitis or cholecystitis without obstruction (2) Elevated LFTs ICD Code: R79.89 - Other specified abnormal findings of blood chemistry (3) Vaginal bleeding ICD Code: N93.9 - Abnormal uterine and vaginal bleeding, unspecified Status: Acute (4) Uterine mass ICD Code: N85.9 - Noninflammatory disorder of uterus, unspecified Assessment and Plan 05/30: Poor prognosis, [facility] consulted hospice, patient agree 86 years old female admitted for elevated LFTs and abdominal pain choledocholithiasis S/P ERCP with sphincterotomy with stone extraction 05/28 GI ff ff LFts- trend start diet- advance diet watch for pancreatitis signs Postmenopausal Vaginal Bleeding Cervical Mass post speculum exam 05/28 - suspicious necrotic mass on cervix - elevated tumor marker Gynecology and [facility]/oncology service consult appreciated, poor prognosis consulted hospice after discussion with the patient Symptomatic Anemia- from ongoing Vaginal bleeding- patient S/P 1 unit RBC 05/28 stat CBC now - give another unit if H and H less than 8.5 start iron sulfate 325 mg po bid TEDs/SCDs for DVT prophylaxis PPI for GI prophylaxis PT consult- up and ambualte- deconditioning Jose Koroma MD May 30, 2017 16:40
[2017-05-30 16:51] LABS: ANA SCREEN NEG (NEG)
[2017-05-30 20:21] VITALS: BP 150/67; PULSE 85; RESP 18; TEMP 97.3; O2SAT 96
[2017-05-31 01:04] VITALS: BP 168/81; PULSE 70; RESP 18; TEMP 97.2; O2SAT 96
[2017-05-31] MEDS: SODIUM CHLOR 0.9% 1000 ML INJ 1,000 ML IV SCH (03:09)
[2017-05-31 05:03] VITALS: BP 157/78; PULSE 70; RESP 18; TEMP 97.4; O2SAT 94
[2017-05-31] MEDS ORDERED: METOCLOPRAMIDE HCL 10 MG/2 ML VIAL IV PUSH PRN (07:45)
[2017-05-31 08:00] VITALS: BP 161/78; PULSE 67; RESP 18; TEMP 97.3; O2SAT 97
[2017-05-31] MEDS: PANTOPRAZOLE SOD 40 MG DELAYED RELEASE TAB PO SCH (08:39)
[2017-05-31] MEDS: SODIUM CHLORIDE 0.9% FLUSH 10 ML FLUSH IV FLUSH SCH (08:39)
[2017-05-31] MEDS: FERROUS SULFATE 325 MG (65 MG ELEMENTAL IRON) TAB PO SCH (08:39)
[2017-05-31 17:53] LABS: CERULOPLASMIN 43 mg/dL (18-53)
[2017-06-03 03:50] LABS: MITOCHONDRIAL ABS LESS THAN 20.0 U (<=20.0)
== END 2017-05-31 14:20 | disposition hospice, home (50) | DRG 988 ==
LOC: NEPC 16:41 → NEDA 21:37 → N06B 22:22
PROVIDERS: ADMIT Hospitalist; ATTEND Hospitalist
PROC: 30233N1 Transfusion of Nonautologous Red Blood Cells into Peripheral Vein, Percutaneous Approach (ICD-10-PCS; 2017-05-28)
PROC: 0FC98ZZ Extirpation of Matter from Common Bile Duct, Via Natural or Artificial Opening Endoscopic (ICD-10-PCS; 2017-05-28)
PROC: 0UDB7ZX Extraction of Endometrium, Via Natural or Artificial Opening, Diagnostic (ICD-10-PCS; principal; 2017-05-28 12:45)
DX: K80.71 Calculus of gallbladder and bile duct without cholecystitis with obstruction (principal); R18.8 Other ascites; K76.6 Portal hypertension; D64.9 Anemia, unspecified; N85.8 Other specified noninflammatory disorders of uterus; I10 Essential (primary) hypertension; K21.9 Gastro-esophageal reflux disease without esophagitis; N93.9 Abnormal uterine and vaginal bleeding, unspecified; N95.0 Postmenopausal bleeding; R53.1 Weakness; R97.8 Other abnormal tumor markers; R32 Unspecified urinary incontinence; Z23 Encounter for immunization; Z87.891 Personal history of nicotine dependence
CPT/HCPCS: 36430; 74177; 74183; 74330; 76377; 76705; 76830; 76856; 80053; 80074; 80076; 82103; 82105; 82390; 82728; 83520; 83540; 83550; 83690; 85025; 85027; 85610; 85730; 86038; 86255; 86301; 86850; 86900; 86901; 86920; 87328; 87329; 87493; 87506; 88305; 88341; 88342; 90686; 90732; 93005; 99285; A9579; C1769; J7030; P9016; Q2038; Q9967